=== PATIENT | male | born 1970 | race Two or more races ===

== ENCOUNTER 2021-03-14 13:51 | Inpatient (IN) | payer MEDICAID, OTHER ==
[~2021-03-14] VITALS: Ht 167.6 cm; Wt 90.0 kg
[2021-03-14] MEDS ORDERED: SODIUM CHLORIDE 0.9% 1,000 ML IV ONE (14:00)
[2021-03-14] MEDS ORDERED: PANTOPRAZOLE 40mg/50ML NS AE 50 ML IV ONE (14:00)
[2021-03-14] MEDS ORDERED: OCTREOTIDE ACETATE 100 MCG in SODIUM CHL 0.9% 50 ML IV ONE ×2 (14:00→18:30)
[2021-03-14 14:32] LABS: Albumin 2.2 g/dL (3.4-5.0); Anion Gap 12 (5-15); Blood Urea Nitrogen 14 mg/dL (7-18); Calcium 7.3 mg/dL (8.5-10.1); Carbon Dioxide 16 mmol/L (21-32); Chloride 109 mmol/L (98-107); Eosinophils # (auto) 0.4 10 ^3/uL (0-0.8); Glucose 141 mg/dL (74-106); Lymphocytes # (auto) 1.4 10 ^3/uL (0.4-5.4); Potassium 4.1 mmol/L (3.5-5.1); Sodium 137 mmol/L (136-145)
[2021-03-14 14:33] LABS: INR 1.54 (0.9-1.15); Partial Thromboplastin Time 27.1 sec (23.6-33.0)
[2021-03-14 14:34] LABS: Basophils # (auto) 0.4 10 ^3/uL (0-0.2); Basophils % (auto) 4.6 % (0.0-2.0); Eosinophils % (auto) 4.8 % (0.0-7.0); Hematocrit 22.9 % (41.0-53.0); Lymphocytes % (auto) 16.1 % (10.0-50.0); Mean Corpuscular Hemoglobin 22.1 pg (28.0-32.0); Mean Corpuscular Hgb Conc. 29.8 g/dL (32.0-36.0); Mean Corpuscular Volume 74.2 fL (80.0-100.0); Monocytes % (auto) 10.7 % (0.0-12.0); Neutrophils # (auto) 5.7 10 ^3/uL (1.6-8.6); Neutrophils % (auto) 63.8 % (37.0-80.0); Nucleated Red Blood Cells % 0.2 %; Red Blood Cells 3.09 10^6/uL (4.5-5.90)
[2021-03-14 14:36] LABS: Red Cell Distribution Width 23.8 % (11.8-14.3)
[2021-03-14 14:37] LABS: Alanine Aminotransferase 41 U/L (16-61); Alkaline Phosphatase 122 U/L (45-117); Aspartate Aminotransferase 58 U/L (15-37); BUN/Creatinine Ratio 17.1; Bilirubin, Total 1.5 mg/dL (0.2-1.0); GFR African American 128 mL/min; GFR Non-African American 106 mL/min; Hemoglobin 6.8 g/dL (13.5-17.5); Total Protein 6.9 g/dL (6.4-8.2)
[2021-03-14] MEDS ORDERED: PANTOPRAZOLE 40 MG/10 ML VIAL INJ IV ONE (17:15)
[2021-03-14] MEDS ORDERED: SUCRALFATE 1 GM/10 ML ORAL SUSP PO ONE ×2 (17:15→18:45)
[2021-03-14] MEDS ORDERED: MORPHINE SULFATE INJECTION 2 MG/ML SYRG IV PRN ×3 (17:15→20:00)
[2021-03-14] MEDS ORDERED: NITROGLYCERIN 0.4 MG SL TAB SL PRN ×2 (17:15→20:00)
[2021-03-14] MEDS: SODIUM CHLORIDE 0.9% 1,000 ML IV SCH (17:15)
[2021-03-14] MEDS ORDERED: NOREPINEPHRINE 8 MG/250ML KIT 250 ML IV PRN (18:45)
[2021-03-14] MEDS ORDERED: hydrALAZINE HCL 20 MG/ML VL IV PRN (18:45)
[2021-03-14] MEDS ORDERED: LORazepam 2MG/ML-1ML VIAL IV PRN (18:45)
[2021-03-14] MEDS ORDERED: CEFTRIAXONE SODIUM 2 GM in D5W 5% 50 ML IV ONE (18:45)
[2021-03-14 18:54] LABS: % Iron Saturation 17.3 % (20-55)
[2021-03-14] MEDS ORDERED: PROP20TA73 PO (18:55)
[2021-03-14] MEDS ORDERED: AMOX500C2 PO (18:55)
[2021-03-14] MEDS ORDERED: SPIR100T4 PO (18:55)
[2021-03-14] MEDS ORDERED: PANT40TA2 PO (18:55)
[2021-03-14] MEDS ORDERED: ACETAMINOPHEN 325 MG TAB PO PRN (20:00)
[2021-03-14] MEDS ORDERED: ONDANSETRON HCL 4 MG/2 ML VIAL IV PRN (20:00)
[2021-03-14] MEDS ORDERED: HYDROcodone-ACET 5/325MG TAB PO PRN (20:00)
[2021-03-14] MEDS ORDERED: DOCUSATE SOD 100 MG CAP PO PRN (20:00)
[2021-03-14 20:30] LABS: Cholesterol 81 mg/dL (< 200)
[2021-03-14 20:34] LABS: HDL Cholesterol 31 mg/dL (40-59); LDL Cholesterol 42 mg/dL (< 100); Triglycerides 57 mg/dL (< 150)
[2021-03-14 20:45] VITALS: BP 109/49
[2021-03-14 21:05] VITALS: BP 113/69
[2021-03-14 21:17] LABS: Ferritin 9.3 ng/mL (10-322)
[2021-03-14 21:45] VITALS: BP 116/63
[2021-03-14] MEDS: SUCRALFATE 1 GM/10 ML ORAL SUSP PO SCH (21:47)
[2021-03-14] MEDS: PANTOPRAZOLE 40 MG/10 ML VIAL INJ IV SCH (21:47)
[2021-03-14] MEDS ORDERED: SUCRALFATE 1 GM/10 ML ORAL SUSP PO SCH (22:00)
[2021-03-14] MEDS ORDERED: TEMAZEPAM 15 MG CAP PO PRN (22:00)
[2021-03-14] MEDS: OCTREOTIDE ACETATE 500 MCG in SODIUM CHL 0.9% 99 ML IV SCH (23:18)
[2021-03-14 23:20] VITALS: BP 114/66
[2021-03-14 23:25] VITALS: BP 114/66
[2021-03-14 23:40] VITALS: BP 114/62
[2021-03-15 00:25] VITALS: BP 124/62
[2021-03-15 01:56] LABS: Urine Bacteria FEW /hpf (None Seen); Urine Blood Negative /uL (Negative); Urine Specific Gravity 1.022 (1.001-1.035); Urine WBC 1 /hpf (0 - 3)
[2021-03-15 01:57] VITALS: BP 116/64
[2021-03-15 02:12] LABS: Amphetamine Screen, Urine NEGATIVE (NEGATIVE); Barbiturate Scree,Urine NEGATIVE (NEGATIVE); Benzodiazephine Screen, Urine NEGATIVE (NEGATIVE); Cannabinoid Screen, Urine NEGATIVE (NEGATIVE); Cocaine Screen, Urine NEGATIVE (NEGATIVE); Opiate Scree,Urine NEGATIVE (NEGATIVE); Phencyclidine Screen, Urine NEGATIVE (NEGATIVE)
[2021-03-15 02:45] VITALS: BP 125/66
[2021-03-15 03:05] VITALS: BP 111/69
[2021-03-15 03:45] VITALS: BP 121/65
[2021-03-15 04:30] VITALS: BP 124/66
[2021-03-15] MEDS: OCTREOTIDE ACETATE 500 MCG in SODIUM CHL 0.9% 99 ML IV SCH ×2 (04:30→14:30)
[2021-03-15 07:44] LABS: Hematocrit 22.6 % (41.0-53.0); Mean Corpuscular Hgb Conc. 32.1 g/dL (32.0-36.0)
[2021-03-15] MEDS: SUCRALFATE 1 GM/10 ML ORAL SUSP PO SCH ×4 (08:00→23:37)
[2021-03-15] MEDS ORDERED: LURASIDONE 60 MG PO SCH (08:00)
[2021-03-15 08:02] LABS: Basophils # (auto) 0.1 10 ^3/uL (0-0.2); Eosinophils # (auto) 0.3 10 ^3/uL (0-0.8); Eosinophils % (auto) 4.7 % (0.0-7.0); Hemoglobin 7.3 g/dL (13.5-17.5); Lymphocytes % (auto) 14.3 % (10.0-50.0); Mean Corpuscular Hemoglobin 24.9 pg (28.0-32.0); Mean Corpuscular Volume 77.7 fL (80.0-100.0); Monocytes % (auto) 14.2 % (0.0-12.0); Neutrophils # (auto) 4.5 10 ^3/uL (1.6-8.6); Neutrophils % (auto) 64.8 % (37.0-80.0); Red Blood Cells 2.91 10^6/uL (4.5-5.90)
[2021-03-15 08:03] LABS: Red Cell Distribution Width 23.5 % (11.8-14.3)
[2021-03-15] MEDS: cefTRIAXone 1GM/50ML D5W 50 ML IV SCH (09:00)
[2021-03-15] MEDS: PANTOPRAZOLE 40 MG/10 ML VIAL INJ IV SCH ×2 (10:15→23:38)
[2021-03-15] MEDS: SODIUM CHLORIDE 0.9% 1,000 ML IV SCH (10:15)
[2021-03-16] VITALS (12 sets, daily range): BP systolic 114–133; BP diastolic 58–82
[2021-03-16] MEDS: OCTREOTIDE ACETATE 500 MCG in SODIUM CHL 0.9% 99 ML IV SCH ×3 (01:02→21:19)
[2021-03-16] MEDS ORDERED: VANCOMYCIN PER PHARMACY 0 MG IV SCH (02:15)
[2021-03-16] MEDS ORDERED: VANCOMYCIN 1GM/250ML 250 ML IV ONE (02:45)
[2021-03-16 05:55] LABS: Basophils # (auto) 0.1 10 ^3/uL (0-0.2); Basophils % (auto) 0.9 % (0.0-2.0); Eosinophils # (auto) 0.4 10 ^3/uL (0-0.8); Eosinophils % (auto) 7.7 % (0.0-7.0); Hematocrit 20.9 % (41.0-53.0); Lymphocytes # (auto) 0.7 10 ^3/uL (0.4-5.4); Lymphocytes % (auto) 12.7 % (10.0-50.0); Mean Corpuscular Hemoglobin 25.5 pg (28.0-32.0); Mean Corpuscular Hgb Conc. 32.8 g/dL (32.0-36.0); Mean Corpuscular Volume 77.8 fL (80.0-100.0); Monocytes # (auto) 0.6 10 ^3/uL (0-1.3); Monocytes % (auto) 11.3 % (0.0-12.0); Neutrophils # (auto) 3.8 10 ^3/uL (1.6-8.6); Neutrophils % (auto) 67.4 % (37.0-80.0); Nucleated Red Blood Cells % 0.1 %; Red Blood Cells 2.69 10^6/uL (4.5-5.90); Red Cell Distribution Width 23.9 % (11.8-14.3); White Blood Cell 5.7 10^3/uL (4.4-10.8)
[2021-03-16 06:16] LABS: Calcium 7.7 mg/dL (8.5-10.1); Potassium 3.8 mmol/L (3.5-5.1)
[2021-03-16 06:25] LABS: BUN/Creatinine Ratio 16.7; Bilirubin, Total 2.4 mg/dL (0.2-1.0)
[2021-03-16 06:44] LABS: Hemoglobin 6.9 g/dL (13.5-17.5)
[2021-03-16] MEDS: SUCRALFATE 1 GM/10 ML ORAL SUSP PO SCH ×4 (07:46→21:19)
[2021-03-16] MEDS: cefTRIAXone 1GM/50ML D5W 50 ML IV SCH (09:07)
[2021-03-16] MEDS: PANTOPRAZOLE 40 MG/10 ML VIAL INJ IV SCH ×2 (09:59→21:19)
[2021-03-16 12:28] LABS: INR 1.38 (0.9-1.15)
[2021-03-16] MEDS: VANCOMYCIN 1GM/250ML 250 ML IV SCH ×2 (13:11→23:00)
[2021-03-17 05:00] VITALS: BP 118/70
[2021-03-17] MEDS: SUCRALFATE 1 GM/10 ML ORAL SUSP PO SCH ×4 (05:15→21:04)
[2021-03-17 06:08] LABS: Basophils # (auto) 0.1 10 ^3/uL (0-0.2); Eosinophils # (auto) 0.4 10 ^3/uL (0-0.8); Mean Corpuscular Volume 80.5 fL (80.0-100.0); Monocytes # (auto) 0.6 10 ^3/uL (0-1.3)
[2021-03-17 06:11] LABS: Basophils % (auto) 2.1 % (0.0-2.0); Eosinophils % (auto) 8.2 % (0.0-7.0); Hematocrit 26.5 % (41.0-53.0); Hemoglobin 8.6 g/dL (13.5-17.5); Lymphocytes # (auto) 0.6 10 ^3/uL (0.4-5.4); Lymphocytes % (auto) 13.9 % (10.0-50.0); Mean Corpuscular Hemoglobin 26.3 pg (28.0-32.0); Mean Corpuscular Hgb Conc. 32.6 g/dL (32.0-36.0); Monocytes % (auto) 12.7 % (0.0-12.0); Neutrophils # (auto) 2.9 10 ^3/uL (1.6-8.6); Neutrophils % (auto) 63.1 % (37.0-80.0); Nucleated Red Blood Cells % 0.2 %; Red Blood Cells 3.29 10^6/uL (4.5-5.90); White Blood Cell 4.6 10^3/uL (4.4-10.8)
[2021-03-17 06:17] LABS: INR 1.43 (0.9-1.15)
[2021-03-17 06:18] LABS: Red Cell Distribution Width 23.1 % (11.8-14.3)
[2021-03-17 06:27] LABS: Potassium 3.8 mmol/L (3.5-5.1)
[2021-03-17 06:35] LABS: Albumin 2.1 g/dL (3.4-5.0); Bilirubin, Total 2.7 mg/dL (0.2-1.0); Calcium 7.8 mg/dL (8.5-10.1); Total Protein 6.1 g/dL (6.4-8.2)
[2021-03-17] MEDS: OCTREOTIDE ACETATE 500 MCG in SODIUM CHL 0.9% 99 ML IV SCH ×2 (06:47→17:08)
[2021-03-17 09:00] VITALS: BP 127/74
[2021-03-17 10:06] LABS: Folate (Folic Acid) 17.08 ng/mL (5.38-24)
[2021-03-17] MEDS: PANTOPRAZOLE 40 MG/10 ML VIAL INJ IV SCH ×2 (10:12→21:04)
[2021-03-17] MEDS: VANCOMYCIN 1GM/250ML 250 ML IV SCH ×2 (10:12→18:06)
[2021-03-17] MEDS ORDERED: LIDOCAINE VISCOUS 2% 15ML UD ONE (11:11)
[2021-03-17] MEDS ORDERED: diphenhdrAMINE HCL 50 MG/1 ML VL ONE (11:11)
[2021-03-17] MEDS: cefTRIAXone 1GM/50ML D5W 50 ML IV SCH (11:26)
[2021-03-17 12:49] VITALS: BP 134/73
[2021-03-17] MEDS ORDERED: SIMETHICONE 40 MG/0.6 ML ORAL DROP ONE (13:50)
[2021-03-17] MEDS: MIDAZOLAM HCL 5 MG/ML-1ML VIAL ONE ×2 (13:52→13:56)
[2021-03-17] MEDS: fentaNYL CITRATE 100 MCG/2 ML VL ONE ×2 (13:52→13:56)
[2021-03-17 13:57] LABS: Hepatitis A Ab IgM Negative; Hepatitis B Core IgM Negative
[2021-03-17 13:58] LABS: Hepatitis B Surface Antigen Negative (Negative); Hepatitis C Antibody Negative (Negative)
[2021-03-17 16:49] VITALS: BP 143/78
[2021-03-17 22:00] VITALS: BP 114/69
[2021-03-18] MEDS: OCTREOTIDE ACETATE 500 MCG in SODIUM CHL 0.9% 99 ML IV SCH (02:30)
[2021-03-18] MEDS: VANCOMYCIN 1GM/250ML 250 ML IV SCH (04:32)
[2021-03-18 05:00] VITALS: BP 117/75
[2021-03-18 05:14] LABS: Basophils # (auto) 0.1 10 ^3/uL (0-0.2); Eosinophils # (auto) 0.3 10 ^3/uL (0-0.8); Hemoglobin 9.1 g/dL (13.5-17.5); Lymphocytes # (auto) 0.8 10 ^3/uL (0.4-5.4); White Blood Cell 5.6 10^3/uL (4.4-10.8)
[2021-03-18 05:16] LABS: Basophils % (auto) 1.3 % (0.0-2.0); Eosinophils % (auto) 5.2 % (0.0-7.0); Hematocrit 27.6 % (41.0-53.0); Lymphocytes % (auto) 14.3 % (10.0-50.0); Mean Corpuscular Hemoglobin 26.6 pg (28.0-32.0); Mean Corpuscular Hgb Conc. 32.8 g/dL (32.0-36.0); Monocytes # (auto) 0.6 10 ^3/uL (0-1.3); Neutrophils # (auto) 3.8 10 ^3/uL (1.6-8.6); Neutrophils % (auto) 68.2 % (37.0-80.0); Nucleated Red Blood Cells % 0.2 %; Red Blood Cells 3.41 10^6/uL (4.5-5.90)
[2021-03-18 06:12] LABS: Red Cell Distribution Width 23.4 % (11.8-14.3)
[2021-03-18] MEDS: SUCRALFATE 1 GM/10 ML ORAL SUSP PO SCH ×2 (06:14→11:30)
[2021-03-18 09:00] VITALS: BP 139/80
[2021-03-18] MEDS: cefTRIAXone 1GM/50ML D5W 50 ML IV SCH (09:00)
[2021-03-18] MEDS: PANTOPRAZOLE 40 MG/10 ML VIAL INJ IV SCH (10:00)
[2021-03-18] MEDS ORDERED: FOLIC ACID 1 MG, MULTIPLE VITAMIN 10 ML, MAGNESIUM SULF SDV 50% 8 MEQ, THIAMINE INJ 100... INJ SCH ×5 (12:00)
[2021-03-18] MEDS ORDERED: VANCOMYCIN 1GM/250ML 250 ML IV SCH (12:00)
[2021-03-18 12:35] VITALS: BP 138/80
[2021-03-18 13:00] VITALS: BP 120/66
[2021-03-18 17:00] VITALS: BP 136/83
[2021-03-18] MEDS ORDERED: FOLIC ACID 1 MG, MULTIPLE VITAMIN 10 ML, MAGNESIUM SULF SDV 50% 8 MEQ, THIAMINE INJ 100... INJ ONE ×5 (17:00)
== END 2021-03-18 19:40 | disposition home or self-care (01) | DRG 280 ==
LOC: EDSEX 13:51 → EDBD 13:51 → ER 13:52 → TELE 17:12 → TELE-WESTW 03-16 11:20
PROVIDERS: ADMIT Hospitalist; ATTEND Family Medicine
PROC: 30233N1 Transfusion of Nonautologous Red Blood Cells into Peripheral Vein, Percutaneous Approach (ICD-10-PCS; 2021-03-14)
PROC: 30233K1 Transfusion of Nonautologous Frozen Plasma into Peripheral Vein, Percutaneous Approach (ICD-10-PCS; 2021-03-15)
PROC: 0DJ08ZZ Inspection of Upper Intestinal Tract, Via Natural or Artificial Opening Endoscopic (ICD-10-PCS; principal; 2021-03-17 13:45)
DX: K70.30 Alcoholic cirrhosis of liver without ascites (principal); R57.8 Other shock; K22.11 Ulcer of esophagus with bleeding; E43 Unspecified severe protein-calorie malnutrition; K25.4 Chronic or unspecified gastric ulcer with hemorrhage; K29.71 Gastritis, unspecified, with bleeding; D68.9 Coagulation defect, unspecified; D69.6 Thrombocytopenia, unspecified; I85.10 Secondary esophageal varices without bleeding; D62 Acute posthemorrhagic anemia; K76.6 Portal hypertension; R16.1 Splenomegaly, not elsewhere classified; Z20.822 Contact with and (suspected) exposure to COVID-19; E11.9 Type 2 diabetes mellitus without complications; E66.9 Obesity, unspecified; E78.5 Hyperlipidemia, unspecified; I10 Essential (primary) hypertension; F10.239 Alcohol dependence with withdrawal, unspecified; F17.200 Nicotine dependence, unspecified, uncomplicated; Z71.6 Tobacco abuse counseling; Z68.32 Body mass index [BMI] 32.0-32.9, adult
CPT/HCPCS: 36415; 43235; 71045; 74176; 80053; 80061; 80074; 80202; 80307; 80320; 81001; 82607; 82728; 82746; 83036; 83540; 83550; 83615; 83880; 84484; 85025; 85045; 85610; 85730; 86850; 86900; 86901; 86920; 87040; 87086; 87426; 93005; 93306; 96361; 96365; 96366; 96367; 96368; 96375; 99291; C9113; G0378; J0696; J2250; J7060

== ENCOUNTER 2021-08-09 09:02 | Inpatient (IN) | payer MEDICAID ==
[~2021-08-09] VITALS: Ht 167.6 cm; Wt 93.9 kg
[~2021-08-09 09:02] MED LIST: PANT40TA2 PO; PROP20TA73 PO; SPIR100T4 PO
[2021-08-09 09:41] LABS: Basophils # (auto) 0.1 10 ^3/uL (0-0.2); Eosinophils # (auto) 0.2 10 ^3/uL (0-0.8); Lymphocytes # (auto) 1.1 10 ^3/uL (0.4-5.4); Mean Corpuscular Hemoglobin 24.6 pg (28.0-32.0); Neutrophils # (auto) 9.3 10 ^3/uL (1.6-8.6); Nucleated Red Blood Cells % 0.2 %; White Blood Cell 11.7 10^3/uL (4.4-10.8)
[2021-08-09 09:42] LABS: Eosinophils % (auto) 1.6 % (0.0-7.0); Hematocrit 28.8 % (41.0-53.0); Lymphocytes % (auto) 9.7 % (10.0-50.0); Mean Corpuscular Hgb Conc. 31.3 g/dL (32.0-36.0); Mean Corpuscular Volume 78.6 fL (80.0-100.0); Monocytes # (auto) 0.9 10 ^3/uL (0-1.3); Monocytes % (auto) 7.8 % (0.0-12.0); Neutrophils % (auto) 79.9 % (37.0-80.0); Red Blood Cells 3.66 10^6/uL (4.5-5.90)
[2021-08-09] MEDS ORDERED: ONDANSETRON HCL 4 MG/2 ML VIAL IV ONE (09:45)
[2021-08-09 09:53] LABS: INR 1.38 (0.9-1.15)
[2021-08-09 10:05] LABS: Albumin 2.7 g/dL (3.4-5.0); Calcium 8.3 mg/dL (8.5-10.1); Magnesium 2.3 mg/dL (1.6-2.6); Potassium 3.7 mmol/L (3.5-5.1)
[2021-08-09 10:11] LABS: BUN/Creatinine Ratio 46.4; Bilirubin, Total 2.6 mg/dL (0.2-1.0); Total Protein 7.1 g/dL (6.4-8.2)
[2021-08-09 10:30] LABS: Urine WBC None Seen /hpf (0 - 3)
[2021-08-09] MEDS ORDERED: SODIUM CHLORIDE 0.9% 1,000 ML IV ONE (10:45)
[2021-08-09] MEDS ORDERED: SODIUM CHLORIDE 0.9% 500 ML IVB ONE (10:45)
[2021-08-09 10:52] LABS: Urine Bacteria FEW /hpf (None Seen); Urine Blood Negative /uL (Negative); Urine Mucus FEW (None Seen); Urine Specific Gravity 1.029 (1.001-1.035)
[2021-08-09] MEDS ORDERED: PANTOPRAZOLE 40mg/50ML NS AE 50 ML IV ONE (12:30)
[2021-08-09] MEDS ORDERED: PANTOPRAZOLE 40 MG TAB PO ONE (12:30)
[2021-08-09] MEDS ORDERED: MORPHINE SULFATE INJECTION 2 MG/ML SYRG IV PRN (14:30)
[2021-08-09] MEDS ORDERED: NITROGLYCERIN 0.4 MG SL TAB SL PRN (14:30)
[2021-08-09] MEDS ORDERED: metroNIDAZOLE 500MG/100ML 100 ML IV ONE (15:45)
[2021-08-09] MEDS ORDERED: cefTRIAXone 1GM/50ML D5W 50 ML IV ONE (15:45)
[2021-08-09] MEDS ORDERED: OCTREOTIDE ACETATE 100 MCG in SODIUM CHL 0.9% 50 ML IV ONE (15:45)
[2021-08-09] MEDS ORDERED: HYDROcodone-ACET 5/325MG TAB PO PRN (16:00)
[2021-08-09] MEDS ORDERED: LORazepam 0.5 MG TAB PO PRN (16:00)
[2021-08-09] MEDS ORDERED: FOLIC ACID 1 MG TAB PO ONE (16:00)
[2021-08-09] MEDS ORDERED: hydrALAZINE HCL 20 MG/ML VL IV PRN (16:00)
[2021-08-09] MEDS ORDERED: MULTIPLE VITAMINS W/ MINERALS TAB PO ONE (16:00)
[2021-08-09] MEDS ORDERED: THIAMINE 100mg/ml INJ (200mg/2ml VIAL) IV ONE (16:00)
[2021-08-09] MEDS ORDERED: DOCUSATE SOD 100 MG CAP PO PRN (16:00)
[2021-08-09] MEDS ORDERED: LACTULOSE 20Gm/30ML SOLN PO PRN (16:00)
[2021-08-09] MEDS ORDERED: ONDANSETRON HCL 4 MG/2 ML VIAL IV PRN (16:00)
[2021-08-09] MEDS ORDERED: IPRATROPIUM BROM 0.5 MG/2.5ML INH SOL NEB ONE (16:00)
[2021-08-09] MEDS: metroNIDAZOLE 500MG/100ML 100 ML IV SCH ×2 (16:26→22:17)
[2021-08-09] MEDS: SODIUM CHLORIDE 0.9% 1,000 ML IV SCH (16:42)
[2021-08-09 17:40] LABS: Magnesium 1.9 mg/dL (1.6-2.6); Phosphorus 2.9 mg/dL (2.5-4.90)
[2021-08-09 18:08] LABS: INR 1.54 (0.9-1.15); Partial Thromboplastin Time 29.4 sec (23.6-33.0)
[2021-08-09] MEDS: IPRATROPIUM BROM 0.5 MG/2.5ML INH SOL NEB SCH ×2 (18:53→22:49)
[2021-08-09] MEDS: OCTREOTIDE ACETATE 500 MCG in SODIUM CHL 0.9% 99 ML IV SCH (19:10)
[2021-08-09] MEDS: ATORVASTATIN 20 MG TAB PO SCH (22:17)
[2021-08-09] MEDS: PANTOPRAZOLE 40 MG/10 ML VIAL INJ IV SCH (22:17)
[2021-08-10] VITALS (9 sets, daily range): BP systolic 107–130; BP diastolic 54–81
[2021-08-10] MEDS: IPRATROPIUM BROM 0.5 MG/2.5ML INH SOL NEB SCH ×4 (02:00→19:07)
[2021-08-10 08:42] LABS: Alcohol, Urine < 3.0 mg/dL (0-10); Amphetamine Screen, Urine NEGATIVE (NEGATIVE); Barbiturate Scree,Urine NEGATIVE (NEGATIVE); Benzodiazephine Screen, Urine NEGATIVE (NEGATIVE); Cannabinoid Screen, Urine NEGATIVE (NEGATIVE); Cocaine Screen, Urine NEGATIVE (NEGATIVE); Opiate Scree,Urine NEGATIVE (NEGATIVE); Phencyclidine Screen, Urine NEGATIVE (NEGATIVE)
[2021-08-10] MEDS: OCTREOTIDE ACETATE 500 MCG in SODIUM CHL 0.9% 99 ML IV SCH ×3 (09:10→22:24)
[2021-08-10] MEDS: metroNIDAZOLE 500MG/100ML 100 ML IV SCH ×3 (09:10→23:42)
[2021-08-10] MEDS: SODIUM CHLORIDE 0.9% 1,000 ML IV SCH (09:11)
[2021-08-10] MEDS: cefTRIAXone 1GM/50ML D5W 50 ML IV SCH (09:30)
[2021-08-10] MEDS: MULTIPLE VITAMINS W/ MINERALS TAB PO SCH (09:31)
[2021-08-10] MEDS: FOLIC ACID 1 MG TAB PO SCH (09:31)
[2021-08-10] MEDS: PANTOPRAZOLE 40 MG/10 ML VIAL INJ IV SCH ×2 (09:31→22:32)
[2021-08-10] MEDS: THIAMINE HCL 100 MG TAB PO SCH (09:35)
[2021-08-10 11:25] LABS: CRP High Sensitivity 1.25 mg/dL (< 0.3); Phosphorus 3.3 mg/dL (2.5-4.90); Uric Acid 4.5 mg/dL (3.5-7.2)
[2021-08-10 11:36] LABS: INR 1.49 (0.9-1.15); Partial Thromboplastin Time 29.4 sec (23.6-33.0)
[2021-08-10 11:57] LABS: Basophils # (auto) 0.1 10 ^3/uL (0-0.2); Basophils % (auto) 1.1 % (0.0-2.0); Eosinophils # (auto) 0.4 10 ^3/uL (0-0.8); Eosinophils % (auto) 4.6 % (0.0-7.0); Hematocrit 18.8 % (41.0-53.0); Lymphocytes # (auto) 0.9 10 ^3/uL (0.4-5.4); Lymphocytes % (auto) 10.3 % (10.0-50.0); Mean Corpuscular Hemoglobin 25.7 pg (28.0-32.0); Mean Corpuscular Hgb Conc. 31.8 g/dL (32.0-36.0); Mean Corpuscular Volume 80.8 fL (80.0-100.0); Monocytes # (auto) 0.9 10 ^3/uL (0-1.3); Monocytes % (auto) 10.3 % (0.0-12.0); Neutrophils # (auto) 6.7 10 ^3/uL (1.6-8.6); Neutrophils % (auto) 73.7 % (37.0-80.0); Nucleated Red Blood Cells % 0.1 %; Red Blood Cells 2.33 10^6/uL (4.5-5.90); White Blood Cell 9.1 10^3/uL (4.4-10.8)
[2021-08-10 12:03] LABS: Red Cell Distribution Width 25.7 % (11.8-14.3)
[2021-08-10 13:51] LABS: INR 1.53 (0.9-1.15); Partial Thromboplastin Time 30.2 sec (23.6-33.0)
[2021-08-10 20:15] LABS: Basophils # (auto) 0.1 10 ^3/uL (0-0.2); Eosinophils # (auto) 0.5 10 ^3/uL (0-0.8); Hemoglobin 7.2 g/dL (13.5-17.5); Nucleated Red Blood Cells % 0.2 %
[2021-08-10 20:17] LABS: Basophils % (auto) 0.9 % (0.0-2.0); Eosinophils % (auto) 6.3 % (0.0-7.0); Lymphocytes # (auto) 0.8 10 ^3/uL (0.4-5.4); Lymphocytes % (auto) 10.6 % (10.0-50.0); Mean Corpuscular Hemoglobin 27.2 pg (28.0-32.0); Mean Corpuscular Hgb Conc. 32.8 g/dL (32.0-36.0); Mean Corpuscular Volume 83.1 fL (80.0-100.0); Monocytes % (auto) 12.7 % (0.0-12.0); Neutrophils # (auto) 5.5 10 ^3/uL (1.6-8.6); Neutrophils % (auto) 69.5 % (37.0-80.0); Red Blood Cells 2.64 10^6/uL (4.5-5.90); White Blood Cell 7.9 10^3/uL (4.4-10.8)
[2021-08-10] MEDS ORDERED: IPRATROPIUM BROM 0.5 MG/2.5ML INH SOL NEB PRN (22:00)
[2021-08-10] MEDS: ATORVASTATIN 20 MG TAB PO SCH (22:33)
[2021-08-10] MEDS ORDERED: OCTREOTIDE ACETATE 500 MCG/ML VL ONE (23:51)
[2021-08-11 05:00] VITALS: BP 114/64
[2021-08-11] MEDS: OCTREOTIDE ACETATE 500 MCG in SODIUM CHL 0.9% 99 ML IV SCH (05:15)
[2021-08-11] MEDS: SODIUM CHLORIDE 0.9% 1,000 ML IV SCH (05:21)
[2021-08-11 05:36] LABS: Basophils # (auto) 0.1 10 ^3/uL (0-0.2); Eosinophils # (auto) 0.4 10 ^3/uL (0-0.8); Hematocrit 21.2 % (41.0-53.0); Mean Corpuscular Hgb Conc. 32.9 g/dL (32.0-36.0); Monocytes # (auto) 0.7 10 ^3/uL (0-1.3); White Blood Cell 5.7 10^3/uL (4.4-10.8)
[2021-08-11 05:44] LABS: Basophils % (auto) 1.2 % (0.0-2.0); Eosinophils % (auto) 6.9 % (0.0-7.0); Lymphocytes # (auto) 0.7 10 ^3/uL (0.4-5.4); Mean Corpuscular Hemoglobin 27.5 pg (28.0-32.0); Mean Corpuscular Volume 83.7 fL (80.0-100.0); Monocytes % (auto) 11.8 % (0.0-12.0); Neutrophils # (auto) 3.9 10 ^3/uL (1.6-8.6); Neutrophils % (auto) 68.1 % (37.0-80.0); Nucleated Red Blood Cells % 0.2 %; Red Blood Cells 2.53 10^6/uL (4.5-5.90)
[2021-08-11 05:50] LABS: INR 1.53 (0.9-1.15)
[2021-08-11 06:06] LABS: Potassium 3.4 mmol/L (3.5-5.1)
[2021-08-11 06:15] LABS: BUN/Creatinine Ratio 27.8; Calcium 7.1 mg/dL (8.5-10.1)
[2021-08-11 06:16] LABS: Red Cell Distribution Width 25.1 % (11.8-14.3)
[2021-08-11 06:17] LABS: Bilirubin, Total 2.4 mg/dL (0.2-1.0); Total Protein 5.1 g/dL (6.4-8.2)
[2021-08-11] MEDS: metroNIDAZOLE 500MG/100ML 100 ML IV SCH ×3 (07:55→23:37)
[2021-08-11] MEDS: cefTRIAXone 1GM/50ML D5W 50 ML IV SCH (09:00)
[2021-08-11] MEDS ORDERED: diphenhdrAMINE HCL 50 MG/1 ML VL ONE (09:05)
[2021-08-11] MEDS ORDERED: fentaNYL CITRATE 100 MCG/2 ML VL ONE (09:05)
[2021-08-11] MEDS ORDERED: MIDAZOLAM HCL 5 MG/ML-1ML VIAL ONE (09:05)
[2021-08-11] MEDS ORDERED: LIDOCAINE VISCOUS 2% 15ML UD ONE (09:05)
[2021-08-11] MEDS: THIAMINE HCL 100 MG TAB PO SCH (10:00)
[2021-08-11] MEDS: PANTOPRAZOLE 40 MG/10 ML VIAL INJ IV SCH ×2 (10:00→22:54)
[2021-08-11] MEDS: FOLIC ACID 1 MG TAB PO SCH (10:00)
[2021-08-11] MEDS: MULTIPLE VITAMINS W/ MINERALS TAB PO SCH (10:00)
[2021-08-11 13:00] VITALS: BP 127/70
[2021-08-11 15:45] VITALS: BP 102/50
[2021-08-11 17:00] VITALS: BP 121/68
[2021-08-11 18:54] VITALS: BP 134/79
[2021-08-11 20:12] LABS: Hematocrit 23.8 % (41.0-53.0); Hemoglobin 7.9 g/dL (13.5-17.5)
[2021-08-11] MEDS: ATORVASTATIN 20 MG TAB PO SCH (22:55)
[2021-08-12 06:43] LABS: Basophils # (auto) 0.1 10 ^3/uL (0-0.2); Eosinophils # (auto) 0.3 10 ^3/uL (0-0.8); Hemoglobin 7.9 g/dL (13.5-17.5); Lymphocytes # (auto) 0.4 10 ^3/uL (0.4-5.4); Monocytes # (auto) 0.5 10 ^3/uL (0-1.3); Red Cell Distribution Width 24.1 % (11.8-14.3)
[2021-08-12 06:46] LABS: Basophils % (auto) 1.6 % (0.0-2.0); Eosinophils % (auto) 5.7 % (0.0-7.0); Hematocrit 23.2 % (41.0-53.0); Lymphocytes % (auto) 8.6 % (10.0-50.0); Mean Corpuscular Hemoglobin 28.3 pg (28.0-32.0); Mean Corpuscular Hgb Conc. 34.3 g/dL (32.0-36.0); Mean Corpuscular Volume 82.6 fL (80.0-100.0); Monocytes % (auto) 9.6 % (0.0-12.0); Neutrophils # (auto) 3.9 10 ^3/uL (1.6-8.6); Neutrophils % (auto) 74.5 % (37.0-80.0); Nucleated Red Blood Cells % 0.3 %; Red Blood Cells 2.81 10^6/uL (4.5-5.90); White Blood Cell 5.2 10^3/uL (4.4-10.8)
[2021-08-12 06:56] LABS: INR 1.49 (0.9-1.15); Partial Thromboplastin Time 30.7 sec (23.6-33.0)
[2021-08-12 07:12] LABS: Albumin 2.2 g/dL (3.4-5.0); Calcium 7.4 mg/dL (8.5-10.1); Potassium 3.5 mmol/L (3.5-5.1)
[2021-08-12 07:17] LABS: BUN/Creatinine Ratio 16.1; Bilirubin, Total 4.2 mg/dL (0.2-1.0); Total Protein 5.5 g/dL (6.4-8.2)
[2021-08-12] MEDS: metroNIDAZOLE 500MG/100ML 100 ML IV SCH (07:55)
[2021-08-12 08:00] VITALS: BP 117/58
[2021-08-12] MEDS ORDERED: diphenhdrAMINE HCL 50 MG/1 ML VL ONE (08:25)
[2021-08-12] MEDS ORDERED: MIDAZOLAM HCL 5 MG/ML-1ML VIAL ONE (08:25)
[2021-08-12] MEDS ORDERED: LIDOCAINE VISCOUS 2% 15ML UD ONE (08:25)
[2021-08-12] MEDS ORDERED: fentaNYL CITRATE 100 MCG/2 ML VL ONE (08:26)
[2021-08-12 09:00] VITALS: BP 117/58
[2021-08-12] MEDS: cefTRIAXone 1GM/50ML D5W 50 ML IV SCH (09:00)
[2021-08-12] MEDS: FOLIC ACID 1 MG TAB PO SCH (09:35)
[2021-08-12] MEDS: PANTOPRAZOLE 40 MG/10 ML VIAL INJ IV SCH ×2 (09:35→09:36)
[2021-08-12] MEDS: MULTIPLE VITAMINS W/ MINERALS TAB PO SCH (09:36)
[2021-08-12] MEDS: THIAMINE HCL 100 MG TAB PO SCH (09:36)
[2021-08-12 12:51] VITALS: BP 117/58
[2021-08-12 13:00] VITALS: BP 128/87
== END 2021-08-12 15:41 | disposition home or self-care (01) | DRG 241 ==
LOC: ER 09:02 → TELE 14:29 → TELE-WESTW 08-10 21:53
PROVIDERS: ADMIT Hospitalist; ATTEND Internal Medicine
PROC: 30233N1 Transfusion of Nonautologous Red Blood Cells into Peripheral Vein, Percutaneous Approach (ICD-10-PCS; principal; 2021-08-10)
PROC: 0DJ08ZZ Inspection of Upper Intestinal Tract, Via Natural or Artificial Opening Endoscopic (ICD-10-PCS; 2021-08-12)
DX: K29.21 Alcoholic gastritis with bleeding (principal); I21.A1 Myocardial infarction type 2; E43 Unspecified severe protein-calorie malnutrition; D69.6 Thrombocytopenia, unspecified; J18.9 Pneumonia, unspecified organism; K72.90 Hepatic failure, unspecified without coma; K70.30 Alcoholic cirrhosis of liver without ascites; K57.92 Diverticulitis of intestine, part unspecified, without perforation or abscess without bleeding; I85.10 Secondary esophageal varices without bleeding; K76.6 Portal hypertension; Z20.822 Contact with and (suspected) exposure to COVID-19; D64.9 Anemia, unspecified; N39.0 Urinary tract infection, site not specified; E66.9 Obesity, unspecified; E87.6 Hypokalemia; F10.20 Alcohol dependence, uncomplicated; I50.32 Chronic diastolic (congestive) heart failure; K25.9 Gastric ulcer, unspecified as acute or chronic, without hemorrhage or perforation; K29.80 Duodenitis without bleeding; R53.81 Other malaise; Z68.33 Body mass index [BMI] 33.0-33.9, adult; Z83.3 Family history of diabetes mellitus; Z82.49 Family history of ischemic heart disease and other diseases of the circulatory system
CPT/HCPCS: 36415; 36430; 43235; 71045; 74176; 76705; 80053; 80061; 80307; 81001; 82140; 82728; 83036; 83690; 83735; 83880; 84100; 84443; 84484; 84550; 85014; 85018; 85025; 85379; 85610; 85730; 86141; 86850; 86900; 86901; 86920; 87040; 87086; 87426; 93005; 94640; 96361; 96365; 96375; C9113; G0378; J0696; J2250; J2405; J3490

== ENCOUNTER 2022-02-19 10:35 | Inpatient (IN) | payer MEDICAID, OTHER ==
[~2022-02-19] VITALS: Ht 175.3 cm; Wt 87.3 kg
[2022-02-19] MEDS ORDERED: cefTRIAXone 1GM/50ML D5W 50 ML IV ONE (11:15)
[2022-02-19] MEDS ORDERED: PANTOPRAZOLE 80 MG in SODIUM CHL 0.9% 100 ML IV ONE (11:15)
[2022-02-19] MEDS ORDERED: PANTOPRAZOLE 40mg/50ML NS AE 50 ML IV ONE (11:15)
[2022-02-19] MEDS ORDERED: OCTREOTIDE ACETATE 100 MCG/ML VL IV ONE (12:00)
[2022-02-19 12:20] LABS: Basophils # (auto) 0.1 10 ^3/uL (0-0.2); Eosinophils # (auto) 0.1 10 ^3/uL (0-0.8); Hemoglobin 7.2 g/dL (13.5-17.5); Mean Corpuscular Hemoglobin 21.3 pg (28.0-32.0); Neutrophils # (auto) 5.7 10 ^3/uL (1.6-8.6); Red Blood Cells 3.39 10^6/uL (4.5-5.90)
[2022-02-19 12:22] LABS: Basophils % (auto) 1.7 % (0.0-2.0); Eosinophils % (auto) 0.7 % (0.0-7.0); Hematocrit 24.7 % (41.0-53.0); Lymphocytes % (auto) 12.7 % (10.0-50.0); Mean Corpuscular Hgb Conc. 29.2 g/dL (32.0-36.0); Mean Corpuscular Volume 72.7 fL (80.0-100.0); Monocytes % (auto) 12.4 % (0.0-12.0); Neutrophils % (auto) 72.5 % (37.0-80.0); Nucleated Red Blood Cells % 0.3 %; White Blood Cell 7.9 10^3/uL (4.4-10.8)
[2022-02-19 12:25] LABS: Red Cell Distribution Width 22.9 % (11.8-14.3)
[2022-02-19 12:27] LABS: Urine Bacteria NONE SEEN /hpf (None Seen); Urine Blood 1+ /uL (Negative); Urine Mucus FEW (None Seen); Urine Specific Gravity 1.024 (1.001-1.035); Urine WBC 2 /hpf (0 - 3)
[2022-02-19 12:32] LABS: Albumin 2.4 g/dL (3.4-5.0); Calcium 7.8 mg/dL (8.5-10.1); Potassium 3.6 mmol/L (3.5-5.1)
[2022-02-19 12:34] LABS: INR 1.8 (0.9-1.15); Partial Thromboplastin Time 33.3 sec (24.6-33.4)
[2022-02-19 12:36] LABS: BUN/Creatinine Ratio 35.3; Bilirubin, Total 3.7 mg/dL (0.2-1.0); Total Protein 7.1 g/dL (6.4-8.2)
[2022-02-19] MEDS ORDERED: PHYTONADIONE (VIT K)10 MG/ML 1ML VIAL IV ONE (13:30)
[2022-02-19] MEDS: OCTREOTIDE ACETATE 500 MCG in SODIUM CHL 0.9% 99 ML IV SCH ×3 (13:32→21:35)
[2022-02-19 15:39] LABS: Alcohol, Urine < 3.0 mg/dL (0-10); Amphetamine Screen, Urine NEGATIVE (NEGATIVE); Barbiturate Scree,Urine NEGATIVE (NEGATIVE); Benzodiazephine Screen, Urine NEGATIVE (NEGATIVE); Cannabinoid Screen, Urine NEGATIVE (NEGATIVE); Cocaine Screen, Urine NEGATIVE (NEGATIVE); Opiate Scree,Urine NEGATIVE (NEGATIVE); Phencyclidine Screen, Urine NEGATIVE (NEGATIVE)
[2022-02-19] MEDS ORDERED: NITROGLYCERIN 0.4 MG SL TAB SL PRN (15:45)
[2022-02-19] MEDS ORDERED: MORPHINE SULFATE INJ 2 MG/ml SYRG IV PRN (15:45)
[2022-02-19] MEDS ORDERED: POTASSIUM CHL 20MEQ/100ML 100 ML IV ONE (16:00)
[2022-02-19] MEDS ORDERED: THIAMINE 100mg/ml INJ (200mg/2ml VIAL) IM ONE (16:00)
[2022-02-19 16:38] LABS: Cholesterol 82 mg/dL (< 200)
[2022-02-19 16:41] LABS: HDL Cholesterol 25 mg/dL (40-59); LDL Cholesterol 49 mg/dL (< 100); Triglycerides 81 mg/dL (< 150)
[2022-02-19 17:01] VITALS: BP 124/78
[2022-02-19 17:16] VITALS: BP 125/79
[2022-02-19 18:04] VITALS: BP 132/77
[2022-02-19 18:19] VITALS: BP 117/67
[2022-02-19] MEDS: SODIUM CHLORIDE 0.9% 1,000 ML IV SCH (20:27)
[2022-02-19 20:55] VITALS: BP 127/79
[2022-02-19] MEDS: metroNIDAZOLE 500MG/100ML 100 ML IV SCH (23:27)
[2022-02-19 23:30] VITALS: BP 113/59
[2022-02-20] VITALS (14 sets, daily range): BP systolic 117–135; BP diastolic 50–81
[2022-02-20 01:11] LABS: Hematocrit 23.4 % (41.0-53.0); Hemoglobin 7.2 g/dL (13.5-17.5)
[2022-02-20] MEDS: SODIUM CHLORIDE 0.9% 1,000 ML IV SCH ×3 (04:08→22:00)
[2022-02-20] MEDS: metroNIDAZOLE 500MG/100ML 100 ML IV SCH ×3 (05:57→21:24)
[2022-02-20 06:17] LABS: Basophils # (auto) 0.1 10 ^3/uL (0-0.2); Lymphocytes # (auto) 0.7 10 ^3/uL (0.4-5.4); Mean Corpuscular Hgb Conc. 31.1 g/dL (32.0-36.0); Red Blood Cells 2.91 10^6/uL (4.5-5.90)
[2022-02-20 06:20] LABS: Basophils % (auto) 1.4 % (0.0-2.0); Eosinophils # (auto) 0.2 10 ^3/uL (0-0.8); Eosinophils % (auto) 2.6 % (0.0-7.0); Lymphocytes % (auto) 11.6 % (10.0-50.0); Mean Corpuscular Hemoglobin 23.5 pg (28.0-32.0); Mean Corpuscular Volume 75.6 fL (80.0-100.0); Monocytes # (auto) 0.9 10 ^3/uL (0-1.3); Monocytes % (auto) 15.2 % (0.0-12.0); Neutrophils # (auto) 4.2 10 ^3/uL (1.6-8.6); Neutrophils % (auto) 69.2 % (37.0-80.0); Nucleated Red Blood Cells % 0.2 %; White Blood Cell 6.1 10^3/uL (4.4-10.8)
[2022-02-20 06:35] LABS: Red Cell Distribution Width 24.5 % (11.8-14.3)
[2022-02-20 06:36] LABS: Hemoglobin 6.8 g/dL (13.5-17.5)
[2022-02-20 06:38] LABS: Albumin 2.3 g/dL (3.4-5.0); BUN/Creatinine Ratio 28.6; Calcium 7.7 mg/dL (8.5-10.1); Potassium 3.5 mmol/L (3.5-5.1)
[2022-02-20 06:41] LABS: Bilirubin, Total 3.7 mg/dL (0.2-1.0); Total Protein 6.4 g/dL (6.4-8.2)
[2022-02-20] MEDS: OCTREOTIDE ACETATE 500 MCG in SODIUM CHL 0.9% 99 ML IV SCH ×2 (08:00→18:12)
[2022-02-20] MEDS: CEFTRIAXONE SODIUM 2 GM in D5W 5% 50 ML IV SCH (10:00)
[2022-02-20] MEDS: THIAMINE 100mg/ml INJ (200mg/2ml VIAL) IV SCH (10:24)
[2022-02-20] MEDS: PANTOPRAZOLE 40 MG/10 ML VIAL INJ IV SCH ×2 (10:24→21:23)
[2022-02-20 11:06] LABS: INR 1.44 (0.9-1.15)
[2022-02-20 11:48] LABS: Basophils # (auto) 0.1 10 ^3/uL (0-0.2); Eosinophils # (auto) 0.2 10 ^3/uL (0-0.8); Lymphocytes # (auto) 0.5 10 ^3/uL (0.4-5.4); Monocytes # (auto) 0.8 10 ^3/uL (0-1.3); Neutrophils # (auto) 3.8 10 ^3/uL (1.6-8.6); Nucleated Red Blood Cells % 0.2 %; White Blood Cell 5.3 10^3/uL (4.4-10.8)
[2022-02-20 11:50] LABS: Basophils % (auto) 1.1 % (0.0-2.0); Hematocrit 21.7 % (41.0-53.0); Lymphocytes % (auto) 9.6 % (10.0-50.0); Mean Corpuscular Hemoglobin 22.9 pg (28.0-32.0); Mean Corpuscular Hgb Conc. 30.3 g/dL (32.0-36.0); Mean Corpuscular Volume 75.6 fL (80.0-100.0); Monocytes % (auto) 15.8 % (0.0-12.0); Neutrophils % (auto) 70.5 % (37.0-80.0); Red Blood Cells 2.87 10^6/uL (4.5-5.90)
[2022-02-20 12:13] LABS: Red Cell Distribution Width 25.3 % (11.8-14.3)
[2022-02-20 12:15] LABS: Hemoglobin 6.6 g/dL (13.5-17.5)
[2022-02-20 21:18] LABS: Hemoglobin 8.7 g/dL (13.5-17.5)
[2022-02-20 21:19] LABS: Hematocrit 27.5 % (41.0-53.0)
[2022-02-21] VITALS (10 sets, daily range): BP systolic 112–139; BP diastolic 66–82
[2022-02-21] MEDS: OCTREOTIDE ACETATE 500 MCG in SODIUM CHL 0.9% 99 ML IV SCH ×2 (04:21→16:48)
[2022-02-21 05:06] LABS: Basophils # (auto) 0.1 10 ^3/uL (0-0.2); Eosinophils # (auto) 0.3 10 ^3/uL (0-0.8); Hemoglobin 8.3 g/dL (13.5-17.5); Lymphocytes # (auto) 0.5 10 ^3/uL (0.4-5.4); Neutrophils # (auto) 3.2 10 ^3/uL (1.6-8.6); Red Blood Cells 3.38 10^6/uL (4.5-5.90)
[2022-02-21 05:10] LABS: Eosinophils % (auto) 6.8 % (0.0-7.0); Hematocrit 26.8 % (41.0-53.0); Lymphocytes % (auto) 10.5 % (10.0-50.0); Mean Corpuscular Hemoglobin 24.7 pg (28.0-32.0); Mean Corpuscular Hgb Conc. 31.2 g/dL (32.0-36.0); Mean Corpuscular Volume 79.4 fL (80.0-100.0); Monocytes # (auto) 0.6 10 ^3/uL (0-1.3); Monocytes % (auto) 13.6 % (0.0-12.0); Neutrophils % (auto) 67.1 % (37.0-80.0); Nucleated Red Blood Cells % 0.3 %; White Blood Cell 4.7 10^3/uL (4.4-10.8)
[2022-02-21 05:14] LABS: Red Cell Distribution Width 25.4 % (11.8-14.3)
[2022-02-21 05:16] LABS: BUN/Creatinine Ratio 27.8; Calcium 7.4 mg/dL (8.5-10.1); INR 1.48 (0.9-1.15); Potassium 3.6 mmol/L (3.5-5.1)
[2022-02-21] MEDS: metroNIDAZOLE 500MG/100ML 100 ML IV SCH ×3 (05:57→22:37)
[2022-02-21] MEDS: THIAMINE 100mg/ml INJ (200mg/2ml VIAL) IV SCH (08:35)
[2022-02-21] MEDS: PANTOPRAZOLE 40 MG/10 ML VIAL INJ IV SCH ×2 (08:35→22:37)
[2022-02-21] MEDS: CEFTRIAXONE SODIUM 2 GM in D5W 5% 50 ML IV SCH (08:35)
[2022-02-21] MEDS: SODIUM CHLORIDE 0.9% 1,000 ML IV SCH ×4 (08:36→19:00)
[2022-02-21] MEDS ORDERED: LIDOCAINE VISCOUS 2% 15ML UD ONE (10:50)
[2022-02-21] MEDS ORDERED: SODIUM CHLORIDE LOCK 10 ML ONE (10:50)
[2022-02-21] MEDS ORDERED: fentaNYL CITRATE 100 MCG/2 ML VL ONE (10:50)
[2022-02-21] MEDS ORDERED: MIDAZOLAM HCL 5 MG/ML-1ML VIAL ONE (10:50)
[2022-02-21] MEDS ORDERED: diphenhdrAMINE HCL 50 MG/1 ML VL ONE (10:50)
[2022-02-22] MEDS: OCTREOTIDE ACETATE 500 MCG in SODIUM CHL 0.9% 99 ML IV SCH ×4 (00:30→23:43)
[2022-02-22] MEDS: SODIUM CHLORIDE 0.9% 1,000 ML IV SCH (04:23)
[2022-02-22 05:00] VITALS: BP 140/72
[2022-02-22] MEDS: metroNIDAZOLE 500MG/100ML 100 ML IV SCH ×4 (05:32→23:39)
[2022-02-22 06:06] LABS: Basophils # (auto) 0 10 ^3/uL (0-0.2); Eosinophils # (auto) 0.3 10 ^3/uL (0-0.8); Hemoglobin 8.5 g/dL (13.5-17.5); Lymphocytes # (auto) 0.5 10 ^3/uL (0.4-5.4); Monocytes # (auto) 0.4 10 ^3/uL (0-1.3); Neutrophils # (auto) 2.4 10 ^3/uL (1.6-8.6)
[2022-02-22 06:10] LABS: Basophils % (auto) 0.6 % (0.0-2.0); Eosinophils % (auto) 8.5 % (0.0-7.0); Lymphocytes % (auto) 14.3 % (10.0-50.0); Mean Corpuscular Hemoglobin 24.7 pg (28.0-32.0); Mean Corpuscular Hgb Conc. 31.6 g/dL (32.0-36.0); Mean Corpuscular Volume 78.1 fL (80.0-100.0); Monocytes % (auto) 11.5 % (0.0-12.0); Neutrophils % (auto) 65.1 % (37.0-80.0); Nucleated Red Blood Cells % 0.2 %; Red Blood Cells 3.46 10^6/uL (4.5-5.90); White Blood Cell 3.6 10^3/uL (4.4-10.8)
[2022-02-22 06:13] LABS: Red Cell Distribution Width 25.5 % (11.8-14.3)
[2022-02-22 06:16] LABS: INR 1.56 (0.9-1.15)
[2022-02-22 06:32] LABS: Calcium 7.7 mg/dL (8.5-10.1); Potassium 3.4 mmol/L (3.5-5.1)
[2022-02-22 06:35] LABS: BUN/Creatinine Ratio 15.1
[2022-02-22 08:24] VITALS: BP 129/79
[2022-02-22] MEDS: THIAMINE 100mg/ml INJ (200mg/2ml VIAL) IV SCH (08:32)
[2022-02-22] MEDS: PANTOPRAZOLE 40 MG/10 ML VIAL INJ IV SCH ×2 (08:32→22:05)
[2022-02-22] MEDS: CEFTRIAXONE SODIUM 2 GM in D5W 5% 50 ML IV SCH (08:33)
[2022-02-22] MEDS ORDERED: POTASSIUM CHLORIDE 20 MEQ, LIDOCAINE 1% (LOCAL ANESTH.) 2 ML in SODIUM CHL 0.9% 100 ML IV ONE (10:00)
[2022-02-22] MEDS ORDERED: PHYTONADIONE (VIT K)10 MG/ML 1ML VIAL IV ONE (10:00)
[2022-02-22] MEDS ORDERED: phytonadione 10 MG in SODIUM CHL 0.9% 50 ML IV ONE ×4 (10:30)
[2022-02-22 12:01] VITALS: BP 127/74
[2022-02-22] MEDS ORDERED: CYANOCOBALAMIN (B-12) 1000 MCG/1 ML VIAL IM ONE (15:00)
[2022-02-22 15:02] LABS: Basophils # (auto) 0.1 10 ^3/uL (0-0.2); Eosinophils # (auto) 0.2 10 ^3/uL (0-0.8); Lymphocytes # (auto) 0.4 10 ^3/uL (0.4-5.4); Mean Corpuscular Hgb Conc. 30.7 g/dL (32.0-36.0); Monocytes # (auto) 0.5 10 ^3/uL (0-1.3)
[2022-02-22 15:04] LABS: Basophils % (auto) 1.9 % (0.0-2.0); Eosinophils % (auto) 5.9 % (0.0-7.0); Hematocrit 28.2 % (41.0-53.0); Hemoglobin 8.6 g/dL (13.5-17.5); Lymphocytes % (auto) 11.9 % (10.0-50.0); Mean Corpuscular Hemoglobin 24.2 pg (28.0-32.0); Mean Corpuscular Volume 78.8 fL (80.0-100.0); Monocytes % (auto) 14.5 % (0.0-12.0); Neutrophils # (auto) 2.5 10 ^3/uL (1.6-8.6); Neutrophils % (auto) 65.8 % (37.0-80.0); Nucleated Red Blood Cells % 0.1 %; Red Blood Cells 3.57 10^6/uL (4.5-5.90); Red Cell Distribution Width 25.3 % (11.8-14.3); White Blood Cell 3.8 10^3/uL (4.4-10.8)
[2022-02-22 15:17] LABS: Albumin 2.3 g/dL (3.4-5.0); Calcium 7.6 mg/dL (8.5-10.1); Potassium 3.7 mmol/L (3.5-5.1)
[2022-02-22 15:18] LABS: Bilirubin, Direct 3.5 mg/dL (0-0.2)
[2022-02-22 15:21] LABS: Bilirubin, Total 4.9 mg/dL (0.2-1.0)
[2022-02-22 15:25] LABS: BUN/Creatinine Ratio 14.1; Bilirubin, Total 4.6 mg/dL (0.2-1.0); CRP High Sensitivity 1.45 mg/dL (< 0.3); Total Protein 6.7 g/dL (6.4-8.2)
[2022-02-22 15:34] LABS: INR 1.56 (0.9-1.15); Partial Thromboplastin Time 33.9 sec (24.6-33.4)
[2022-02-22 15:40] LABS: Thyroid Stimulating Hormone 0.4 uIU/mL (0.358-3.74)
[2022-02-22 15:50] LABS: % Iron Saturation 4.4 % (20-55)
[2022-02-22 15:59] LABS: Ferritin 14.2 ng/mL (10-322)
[2022-02-22 17:02] VITALS: BP 131/72
[2022-02-22 22:00] VITALS: BP 130/78
[2022-02-23 05:00] VITALS: BP 146/78
[2022-02-23 05:15] LABS: Eosinophils # (auto) 0.3 10 ^3/uL (0-0.8); Hemoglobin 8.6 g/dL (13.5-17.5); Lymphocytes # (auto) 0.6 10 ^3/uL (0.4-5.4); Monocytes # (auto) 0.4 10 ^3/uL (0-1.3); Neutrophils # (auto) 2.2 10 ^3/uL (1.6-8.6); Nucleated Red Blood Cells % 0.1 %
[2022-02-23 05:18] LABS: Basophils # (auto) 0 10 ^3/uL (0-0.2); Basophils % (auto) 1.4 % (0.0-2.0); Eosinophils % (auto) 7.4 % (0.0-7.0); Hematocrit 27.5 % (41.0-53.0); Lymphocytes % (auto) 16.5 % (10.0-50.0); Mean Corpuscular Hemoglobin 24.6 pg (28.0-32.0); Mean Corpuscular Hgb Conc. 31.3 g/dL (32.0-36.0); Mean Corpuscular Volume 78.6 fL (80.0-100.0); Monocytes % (auto) 11.4 % (0.0-12.0); Neutrophils % (auto) 63.3 % (37.0-80.0); White Blood Cell 3.5 10^3/uL (4.4-10.8)
[2022-02-23 05:20] LABS: Red Cell Distribution Width 25.6 % (11.8-14.3)
[2022-02-23] MEDS: metroNIDAZOLE 500MG/100ML 100 ML IV SCH ×3 (05:25→21:16)
[2022-02-23 05:28] LABS: INR 1.55 (0.9-1.15)
[2022-02-23 05:41] LABS: BUN/Creatinine Ratio 18.8; Calcium 7.6 mg/dL (8.5-10.1); Potassium 3.7 mmol/L (3.5-5.1)
[2022-02-23] MEDS: PANTOPRAZOLE 40 MG/10 ML VIAL INJ IV SCH ×2 (08:35→21:15)
[2022-02-23] MEDS: THIAMINE 100mg/ml INJ (200mg/2ml VIAL) IV SCH (08:35)
[2022-02-23] MEDS: CEFTRIAXONE SODIUM 2 GM in D5W 5% 50 ML IV SCH (08:35)
[2022-02-23 08:55] VITALS: BP 135/84
[2022-02-23] MEDS: SODIUM CHLORIDE 0.9% 1,000 ML IV SCH ×2 (10:00→20:00)
[2022-02-23 12:53] VITALS: BP 164/77
[2022-02-23 13:24] LABS: Hepatitis A Ab IgM Negative
[2022-02-23 13:25] LABS: Hepatitis B Core IgM Negative
[2022-02-23 13:26] LABS: Hepatitis C Antibody Negative (Negative)
[2022-02-23] MEDS: OCTREOTIDE ACETATE 500 MCG in SODIUM CHL 0.9% 99 ML IV SCH (16:00)
[2022-02-23 17:00] VITALS: BP 127/77
[2022-02-23] MEDS: SODIUM FERR GLUC 62.5MG/5ML 125 MG in SODIUM CHL 0.9% 100 ML IV SCH (21:15)
[2022-02-23 22:00] VITALS: BP 129/76
[2022-02-24] MEDS: metroNIDAZOLE 500MG/100ML 100 ML IV SCH ×2 (04:56→23:12)
[2022-02-24] MEDS: OCTREOTIDE ACETATE 500 MCG in SODIUM CHL 0.9% 99 ML IV SCH ×2 (04:56→12:04)
[2022-02-24 05:00] VITALS: BP 137/86
[2022-02-24 06:19] LABS: Basophils # (auto) 0.1 10 ^3/uL (0-0.2); Eosinophils # (auto) 0.3 10 ^3/uL (0-0.8); White Blood Cell 3.8 10^3/uL (4.4-10.8)
[2022-02-24 06:21] LABS: BUN/Creatinine Ratio 12.9; Calcium 7.8 mg/dL (8.5-10.1); Potassium 3.8 mmol/L (3.5-5.1)
[2022-02-24 06:22] LABS: Basophils % (auto) 1.4 % (0.0-2.0); Eosinophils % (auto) 7.5 % (0.0-7.0); Hemoglobin 8.7 g/dL (13.5-17.5); Lymphocytes # (auto) 0.7 10 ^3/uL (0.4-5.4); Lymphocytes % (auto) 17.5 % (10.0-50.0); Mean Corpuscular Hemoglobin 24.2 pg (28.0-32.0); Mean Corpuscular Volume 78.3 fL (80.0-100.0); Monocytes # (auto) 0.5 10 ^3/uL (0-1.3); Neutrophils # (auto) 2.3 10 ^3/uL (1.6-8.6); Neutrophils % (auto) 60.6 % (37.0-80.0); Nucleated Red Blood Cells % 0.1 %; Red Blood Cells 3.58 10^6/uL (4.5-5.90)
[2022-02-24 06:43] LABS: Red Cell Distribution Width 25.9 % (11.8-14.3)
[2022-02-24 09:00] VITALS: BP 120/77
[2022-02-24] MEDS ORDERED: NALOXONE HCL 0.4 MG/ML VIAL ONE (10:35)
[2022-02-24] MEDS ORDERED: FLUMAZENIL 0.1 MG/ML INJ 10ML MDV IV ONE (10:35)
[2022-02-24] MEDS ORDERED: EPINEPHrine HCL 1 MG/10 ML SYRG ONE (10:35)
[2022-02-24] MEDS ORDERED: SODIUM CHLORIDE LOCK 0 ML ONE (10:36)
[2022-02-24] MEDS ORDERED: MIDAZOLAM HCL 5 MG/ML-1ML VIAL ONE (10:36)
[2022-02-24] MEDS ORDERED: fentaNYL CITRATE 100 MCG/2 ML VL ONE (10:36)
[2022-02-24] MEDS ORDERED: LIDOCAINE VISCOUS 2% 15ML UD ONE (10:36)
[2022-02-24] MEDS ORDERED: diphenhdrAMINE HCL 50 MG/1 ML VL ONE (10:36)
[2022-02-24] MEDS: SODIUM CHLORIDE 0.9% 1,000 ML IV SCH ×2 (11:38→16:00)
[2022-02-24] MEDS: PANTOPRAZOLE 40 MG/10 ML VIAL INJ IV SCH ×2 (11:38→22:57)
[2022-02-24] MEDS: THIAMINE 100mg/ml INJ (200mg/2ml VIAL) IV SCH (11:38)
[2022-02-24] MEDS: CEFTRIAXONE SODIUM 2 GM in D5W 5% 50 ML IV SCH (11:39)
[2022-02-24 13:06] LABS: Free T4 (Free Thyroxine) 0.94 ng/dL (0.89-1.76)
[2022-02-24 13:07] LABS: Folate (Folic Acid) 10.37 ng/mL (5.38-24)
[2022-02-24 13:53] VITALS: BP 126/70
[2022-02-24] MEDS ORDERED: ONDANSETRON HCL 4 MG/2 ML VIAL IV PRN (15:30)
[2022-02-24 16:24] VITALS: BP 163/93
[2022-02-24] MEDS: SODIUM FERR GLUC 62.5MG/5ML 125 MG in SODIUM CHL 0.9% 100 ML IV SCH (21:32)
[2022-02-24 22:00] VITALS: BP 146/85
[2022-02-25] MEDS: SODIUM CHLORIDE 0.9% 1,000 ML IV SCH ×2 (02:00→12:00)
[2022-02-25 05:00] VITALS: BP 145/73
[2022-02-25 05:04] LABS: Hemoglobin 8.8 g/dL (13.5-17.5); Mean Corpuscular Hemoglobin 24.9 pg (28.0-32.0)
[2022-02-25] MEDS: metroNIDAZOLE 500MG/100ML 100 ML IV SCH ×2 (05:06→14:10)
[2022-02-25] MEDS: OCTREOTIDE ACETATE 500 MCG in SODIUM CHL 0.9% 99 ML IV SCH ×2 (05:06→08:00)
[2022-02-25 05:08] LABS: Basophils # (auto) 0 10 ^3/uL (0-0.2); Basophils % (auto) 0.9 % (0.0-2.0); Eosinophils # (auto) 0.2 10 ^3/uL (0-0.8); Eosinophils % (auto) 5.9 % (0.0-7.0); Hematocrit 27.4 % (41.0-53.0); Lymphocytes # (auto) 0.7 10 ^3/uL (0.4-5.4); Lymphocytes % (auto) 16.8 % (10.0-50.0); Mean Corpuscular Volume 77.9 fL (80.0-100.0); Monocytes # (auto) 0.4 10 ^3/uL (0-1.3); Monocytes % (auto) 10.9 % (0.0-12.0); Neutrophils # (auto) 2.6 10 ^3/uL (1.6-8.6); Neutrophils % (auto) 65.5 % (37.0-80.0); Nucleated Red Blood Cells % 0.1 %; Red Blood Cells 3.52 10^6/uL (4.5-5.90)
[2022-02-25 05:24] LABS: Red Cell Distribution Width 25.6 % (11.8-14.3)
[2022-02-25 05:27] LABS: Calcium 7.7 mg/dL (8.5-10.1); Potassium 3.8 mmol/L (3.5-5.1)
[2022-02-25 09:00] VITALS: BP 148/77
[2022-02-25] MEDS: CEFTRIAXONE SODIUM 2 GM in D5W 5% 50 ML IV SCH (09:45)
[2022-02-25] MEDS: PANTOPRAZOLE 40 MG/10 ML VIAL INJ IV SCH (09:45)
[2022-02-25] MEDS: THIAMINE 100mg/ml INJ (200mg/2ml VIAL) IV SCH (09:45)
[2022-02-25] MEDS ORDERED: PANT40TA2 PO (09:46)
[2022-02-25] MEDS: SODIUM FERR GLUC 62.5MG/5ML 125 MG in SODIUM CHL 0.9% 100 ML IV SCH (12:13)
[2022-02-25 13:00] VITALS: BP 136/77
[2022-02-25 16:50] VITALS: BP 109/76
== END 2022-02-25 18:15 | disposition home or self-care (01) | DRG 280 ==
LOC: EDBD 10:35 → ER 10:41 → TELE 15:47 → TELE-EAST 22:45
PROVIDERS: ADMIT Registered Nurse; ATTEND Internal Medicine Pulmonary Disease
PROC: 30233N1 Transfusion of Nonautologous Red Blood Cells into Peripheral Vein, Percutaneous Approach (ICD-10-PCS; 2022-02-19)
PROC: 30233R1 Transfusion of Nonautologous Platelets into Peripheral Vein, Percutaneous Approach (ICD-10-PCS; 2022-02-19)
PROC: 06L38CZ Occlusion of Esophageal Vein with Extraluminal Device, Via Natural or Artificial Opening Endoscopic (ICD-10-PCS; 2022-02-24)
PROC: 0DJ08ZZ Inspection of Upper Intestinal Tract, Via Natural or Artificial Opening Endoscopic (ICD-10-PCS; principal; 2022-02-24 14:44)
DX: K70.30 Alcoholic cirrhosis of liver without ascites (principal); I85.11 Secondary esophageal varices with bleeding; E43 Unspecified severe protein-calorie malnutrition; K29.71 Gastritis, unspecified, with bleeding; K29.81 Duodenitis with bleeding; D68.9 Coagulation defect, unspecified; D69.6 Thrombocytopenia, unspecified; D62 Acute posthemorrhagic anemia; E11.9 Type 2 diabetes mellitus without complications; Z20.822 Contact with and (suspected) exposure to COVID-19; Z79.899 Other long term (current) drug therapy; Z68.31 Body mass index [BMI] 31.0-31.9, adult
CPT/HCPCS: 36415; 36430; 71045; 76700; 80048; 80053; 80061; 80074; 80307; 80320; 81001; 82105; 82247; 82248; 82607; 82668; 82728; 82746; 83010; 83036; 83540; 83550; 83615; 84439; 84443; 84484; 85014; 85018; 85025; 85045; 85362; 85610; 85652; 85730; 86141; 86431; 86703; 86850; 86880; 86900; 86901; 86920; 93005; 96361; 96365; 96367; 96372; 96375; 99291; C9113; G0378; J0696; J2001; J2250; J3430; J3480; J3490; J7060

== ENCOUNTER 2022-06-10 08:46 | Inpatient (IN) | payer OTHER ==
[~2022-06-10] VITALS: Ht 160 cm; Wt 93.5 kg
[~2022-06-10 08:46] MED LIST changes: -PROP20TA73 PO; -SPIR100T4 PO
[2022-06-10 09:32] LABS: Hemoglobin 10.8 g/dL (13.5-17.5)
[2022-06-10 09:34] LABS: White Blood Cell 8.7 10^3/uL (4.4-10.8)
[2022-06-10 09:43] LABS: Urine Blood 3+ /uL (Negative); Urine Specific Gravity 1.018 (1.001-1.035)
[2022-06-10 10:07] LABS: Calcium 8.7 mg/dL (8.5-10.1); Potassium 3.7 mmol/L (3.5-5.1)
[2022-06-10 10:11] LABS: Bilirubin, Total 7.2 mg/dL (0.2-1.0); Total Protein 8.6 g/dL (6.4-8.2)
[2022-06-10 10:18] LABS: Mean Corpuscular Hemoglobin 22.6 pg (28.0-32.0); Mean Corpuscular Hgb Conc. 30.9 g/dL (32.0-36.0); Mean Corpuscular Volume 73.1 fL (80.0-100.0); Red Blood Cells 4.79 10^6/uL (4.5-5.90); Red Cell Distribution Width 24.2 % (11.8-14.3)
[2022-06-10 10:21] LABS: Band Neutrophils % (manual) 0; Basophils % (manual) 0 (0.0-2.0); Blast Cells 0; Metamyelocytes % 0; Myelocytes % 0; Promyelocytes % 0; Reactive Lymphocytes 0
[2022-06-10 10:47] LABS: Eosinophils % (manual) 4 (0-7); Lymphocytes % (manual) 8 (10.0-50.0); Monocytes % (manual) 6 (0-12)
[2022-06-10 11:28] LABS: INR 1.57 (0.9-1.15); Partial Thromboplastin Time 33.5 sec (24.6-33.4)
[2022-06-10 11:50] LABS: Magnesium 1.9 mg/dL (1.6-2.6)
[2022-06-10] MEDS: SODIUM CHLORIDE 0.9% 1,000 ML IV SCH (15:00)
[2022-06-10] MEDS ORDERED: THIAMINE 100mg/ml INJ (200mg/2ml VIAL) IV ONE (15:15)
[2022-06-10] MEDS ORDERED: B-COMPLEX W/ C & FOLIC ACID(NEPHROVITE TAB) PO ONE (15:15)
[2022-06-10] MEDS ORDERED: MULTIPLE VITAMIN TAB PO ONE (15:45)
[2022-06-10 15:48] LABS: Cholesterol 131 mg/dL (< 200); Triglycerides 108 mg/dL (< 150)
[2022-06-10 15:51] LABS: HDL Cholesterol 44 mg/dL (40-59); LDL Cholesterol 89 mg/dL (< 100)
[2022-06-10] MEDS: FOLIC ACID 1 MG TAB PO SCH (16:23)
[2022-06-10] MEDS: THIAMINE HCL 100 MG TAB PO SCH (16:23)
[2022-06-10 16:30] LABS: % Iron Saturation 32.3 % (20-55)
[2022-06-10] MEDS: ASCORBIC ACID 500 MG TAB PO SCH (22:24)
[2022-06-11] VITALS (8 sets, daily range): BP systolic 99–134; BP diastolic 53–77
[2022-06-11] MEDS ORDERED: CHOL200031 PO (05:14)
[2022-06-11] MEDS ORDERED: FERR325T20 PO (05:14)
[2022-06-11 05:43] LABS: Potassium 3.8 mmol/L (3.5-5.1)
[2022-06-11 05:50] LABS: Albumin 2.4 g/dL (3.4-5.0); BUN/Creatinine Ratio 35.6; Bilirubin, Total 4.7 mg/dL (0.2-1.0); Calcium 8.4 mg/dL (8.5-10.1); Total Protein 7.2 g/dL (6.4-8.2)
[2022-06-11 05:56] LABS: Basophils # (auto) 0.1 10 ^3/uL (0-0.2); Basophils % (auto) 1.1 % (0.0-2.0); Eosinophils # (auto) 0.4 10 ^3/uL (0-0.8); Hemoglobin 8.9 g/dL (13.5-17.5); Lymphocytes # (auto) 0.7 10 ^3/uL (0.4-5.4)
[2022-06-11 06:03] LABS: Hematocrit 29.4 % (41.0-53.0); Lymphocytes % (auto) 7.3 % (10.0-50.0); Mean Corpuscular Hemoglobin 22.5 pg (28.0-32.0); Mean Corpuscular Hgb Conc. 30.3 g/dL (32.0-36.0); Mean Corpuscular Volume 74.3 fL (80.0-100.0); Monocytes % (auto) 11.2 % (0.0-12.0); Neutrophils # (auto) 6.9 10 ^3/uL (1.6-8.6); Neutrophils % (auto) 76.4 % (37.0-80.0); Nucleated Red Blood Cells % 0.1 %; Red Blood Cells 3.95 10^6/uL (4.5-5.90)
[2022-06-11 07:00] LABS: Red Cell Distribution Width 23.5 % (11.8-14.3)
[2022-06-11] MEDS: ZINC SULFATE 220mg CAP or TAB PO SCH (09:56)
[2022-06-11] MEDS: FOLIC ACID 1 MG TAB PO SCH (09:56)
[2022-06-11] MEDS: ASCORBIC ACID 500 MG TAB PO SCH ×2 (09:57→22:17)
[2022-06-11] MEDS: THIAMINE HCL 100 MG TAB PO SCH (09:57)
[2022-06-11] MEDS: MULTIPLE VITAMIN TAB PO SCH (09:57)
[2022-06-11] MEDS: SODIUM CHLORIDE 0.9% 1,000 ML IV SCH (09:57)
[2022-06-11] MEDS ORDERED: THIAMINE 100mg/ml INJ (200mg/2ml VIAL) IV SCH (10:00)
[2022-06-11] MEDS ORDERED: ENOXAPARIN SOD 40 MG/0.4 ML SYRINGE SC SCH (10:00)
[2022-06-11] MEDS ORDERED: B-COMPLEX W/ C & FOLIC ACID(NEPHROVITE TAB) PO SCH (10:00)
[2022-06-11] MEDS ORDERED: ONDANSETRON HCL 4 MG/2 ML VIAL IV PRN (13:30)
[2022-06-11 14:38] LABS: Hepatitis A Ab IgM Negative
[2022-06-11 14:40] LABS: Hepatitis B Core IgM Negative; Hepatitis C Antibody Negative (Negative)
[2022-06-11] MEDS ORDERED: cefTRIAXone 1GM/50ML D5W 50 ML IV ONE (15:45)
[2022-06-11] MEDS ORDERED: metroNIDAZOLE 500MG/100ML 100 ML IV ONE (15:45)
[2022-06-11] MEDS: PANTOPRAZOLE 40 MG TAB PO SCH (22:17)
[2022-06-11] MEDS: metroNIDAZOLE 500MG/100ML 100 ML IV SCH (22:17)
[2022-06-12] VITALS (14 sets, daily range): BP systolic 97–127; BP diastolic 33–71
[2022-06-12] MEDS: metroNIDAZOLE 500MG/100ML 100 ML IV SCH ×3 (05:37→21:49)
[2022-06-12 07:44] LABS: INR 2.2 (0.9-1.15); Partial Thromboplastin Time 35.9 sec (24.6-33.4)
[2022-06-12 07:45] LABS: Albumin 1.9 g/dL (3.4-5.0); Calcium 8.2 mg/dL (8.5-10.1); Potassium 4.8 mmol/L (3.5-5.1)
[2022-06-12 07:49] LABS: BUN/Creatinine Ratio 54.2; Bilirubin, Total 4.2 mg/dL (0.2-1.0); Total Protein 4.9 g/dL (6.4-8.2)
[2022-06-12 09:54] LABS: Eosinophils # (auto) 0.1 10 ^3/uL (0-0.8); Lymphocytes # (auto) 1.6 10 ^3/uL (0.4-5.4); Monocytes # (auto) 2.6 10 ^3/uL (0-1.3); Neutrophils % (auto) 82.3 % (37.0-80.0); Red Blood Cells 2.02 10^6/uL (4.5-5.90)
[2022-06-12 09:56] LABS: Basophils # (auto) 0.1 10 ^3/uL (0-0.2); Basophils % (auto) 0.3 % (0.0-2.0); Eosinophils % (auto) 0.6 % (0.0-7.0); Hematocrit 16.2 % (41.0-53.0); Lymphocytes % (auto) 6.5 % (10.0-50.0); Mean Corpuscular Hemoglobin 23.9 pg (28.0-32.0); Mean Corpuscular Hgb Conc. 29.7 g/dL (32.0-36.0); Mean Corpuscular Volume 80.4 fL (80.0-100.0); Monocytes % (auto) 10.3 % (0.0-12.0); Neutrophils # (auto) 20.9 10 ^3/uL (1.6-8.6); Nucleated Red Blood Cells % 0.2 %; White Blood Cell 25.4 10^3/uL (4.4-10.8)
[2022-06-12 10:03] LABS: Red Cell Distribution Width 24.4 % (11.8-14.3)
[2022-06-12 10:13] LABS: Hemoglobin 4.8 g/dL (13.5-17.5)
[2022-06-12] MEDS ORDERED: MORPHINE SULFATE INJ 2 MG/ml SYRG IV PRN (10:45)
[2022-06-12] MEDS ORDERED: NITROGLYCERIN 0.4 MG SL TAB SL PRN (10:45)
[2022-06-12] MEDS: cefTRIAXone 1GM/50ML D5W 50 ML IV SCH (11:03)
[2022-06-12] MEDS: ASCORBIC ACID 500 MG TAB PO SCH ×2 (11:04→21:48)
[2022-06-12] MEDS: ZINC SULFATE 220mg CAP or TAB PO SCH (11:04)
[2022-06-12] MEDS: FOLIC ACID 1 MG TAB PO SCH (11:04)
[2022-06-12] MEDS: PANTOPRAZOLE 40 MG TAB PO SCH ×2 (11:04→21:49)
[2022-06-12] MEDS: THIAMINE HCL 100 MG TAB PO SCH (11:04)
[2022-06-12] MEDS: MULTIPLE VITAMIN TAB PO SCH (11:08)
[2022-06-12 12:45] LABS: Folate (Folic Acid) 11.59 ng/mL (5.38-24)
[2022-06-12 23:20] LABS: Hematocrit 17.4 % (41.0-53.0)
[2022-06-12 23:24] LABS: Hemoglobin 5.3 g/dL (13.5-17.5)
[2022-06-13] VITALS (13 sets, daily range): BP systolic 103–132; BP diastolic 47–69
[2022-06-13] MEDS: metroNIDAZOLE 500MG/100ML 100 ML IV SCH ×3 (05:25→23:08)
[2022-06-13 06:12] LABS: INR 2.12 (0.9-1.15)
[2022-06-13 06:18] LABS: BUN/Creatinine Ratio 60.6; Calcium 8.1 mg/dL (8.5-10.1); Potassium 3.9 mmol/L (3.5-5.1)
[2022-06-13 06:28] LABS: Basophils # (auto) 0.1 10 ^3/uL (0-0.2)
[2022-06-13 06:31] LABS: Basophils % (auto) 0.5 % (0.0-2.0); Eosinophils # (auto) 0.5 10 ^3/uL (0-0.8); Eosinophils % (auto) 3.6 % (0.0-7.0); Hematocrit 18.4 % (41.0-53.0); Lymphocytes # (auto) 0.9 10 ^3/uL (0.4-5.4); Lymphocytes % (auto) 5.7 % (10.0-50.0); Mean Corpuscular Hemoglobin 27.2 pg (28.0-32.0); Mean Corpuscular Hgb Conc. 34.1 g/dL (32.0-36.0); Mean Corpuscular Volume 79.8 fL (80.0-100.0); Monocytes # (auto) 1.8 10 ^3/uL (0-1.3); Monocytes % (auto) 12.3 % (0.0-12.0); Neutrophils # (auto) 11.7 10 ^3/uL (1.6-8.6); Neutrophils % (auto) 77.9 % (37.0-80.0); Nucleated Red Blood Cells % 0.6 %; Red Blood Cells 2.31 10^6/uL (4.5-5.90)
[2022-06-13 06:32] LABS: Bilirubin, Total 5.6 mg/dL (0.2-1.0); Total Protein 5.1 g/dL (6.4-8.2)
[2022-06-13 07:44] LABS: Red Cell Distribution Width 23.5 % (11.8-14.3)
[2022-06-13 07:47] LABS: Hemoglobin 6.3 g/dL (13.5-17.5)
[2022-06-13] MEDS: cefTRIAXone 1GM/50ML D5W 50 ML IV SCH (09:14)
[2022-06-13] MEDS: MULTIPLE VITAMIN TAB PO SCH (09:15)
[2022-06-13] MEDS: ZINC SULFATE 220mg CAP or TAB PO SCH (09:15)
[2022-06-13] MEDS: THIAMINE HCL 100 MG TAB PO SCH (09:15)
[2022-06-13] MEDS: FOLIC ACID 1 MG TAB PO SCH (09:15)
[2022-06-13] MEDS: ASCORBIC ACID 500 MG TAB PO SCH ×2 (09:16→21:25)
[2022-06-13] MEDS: PANTOPRAZOLE 40 MG TAB PO SCH ×2 (09:16→21:25)
[2022-06-14] VITALS (11 sets, daily range): BP systolic 114–135; BP diastolic 61–91
[2022-06-14 04:49] LABS: Basophils # (auto) 0.1 10 ^3/uL (0-0.2); Eosinophils # (auto) 0.6 10 ^3/uL (0-0.8); Hematocrit 20.7 % (41.0-53.0); Lymphocytes # (auto) 0.6 10 ^3/uL (0.4-5.4); Red Blood Cells 2.53 10^6/uL (4.5-5.90); White Blood Cell 7.7 10^3/uL (4.4-10.8)
[2022-06-14 04:51] LABS: Basophils % (auto) 1.2 % (0.0-2.0); Lymphocytes % (auto) 7.9 % (10.0-50.0); Mean Corpuscular Hemoglobin 27.9 pg (28.0-32.0); Mean Corpuscular Hgb Conc. 34.1 g/dL (32.0-36.0); Mean Corpuscular Volume 81.8 fL (80.0-100.0); Monocytes # (auto) 1.2 10 ^3/uL (0-1.3); Monocytes % (auto) 15.8 % (0.0-12.0); Neutrophils # (auto) 5.2 10 ^3/uL (1.6-8.6); Neutrophils % (auto) 67.1 % (37.0-80.0); Nucleated Red Blood Cells % 1.6 %
[2022-06-14 05:03] LABS: Red Cell Distribution Width 21.4 % (11.8-14.3)
[2022-06-14] MEDS: metroNIDAZOLE 500MG/100ML 100 ML IV SCH ×3 (06:05→22:57)
[2022-06-14] MEDS: PANTOPRAZOLE 40 MG TAB PO SCH ×2 (09:39→22:58)
[2022-06-14] MEDS: FOLIC ACID 1 MG TAB PO SCH (09:39)
[2022-06-14] MEDS: MULTIPLE VITAMIN TAB PO SCH (09:39)
[2022-06-14] MEDS: THIAMINE HCL 100 MG TAB PO SCH (09:39)
[2022-06-14] MEDS: ZINC SULFATE 220mg CAP or TAB PO SCH (09:39)
[2022-06-14] MEDS: cefTRIAXone 1GM/50ML D5W 50 ML IV SCH (09:39)
[2022-06-14] MEDS: ASCORBIC ACID 500 MG TAB PO SCH ×2 (09:40→22:58)
[2022-06-14] MEDS: OCTREOTIDE ACETATE 500 MCG in SODIUM CHL 0.9% 99 ML IV SCH ×2 (18:09→23:45)
[2022-06-15] VITALS (8 sets, daily range): BP systolic 106–126; BP diastolic 62–75
[2022-06-15] MEDS: metroNIDAZOLE 500MG/100ML 100 ML IV SCH ×3 (05:18→21:33)
[2022-06-15 08:30] LABS: Basophils # (auto) 0.1 10 ^3/uL (0-0.2); Eosinophils # (auto) 0.5 10 ^3/uL (0-0.8); Hemoglobin 8.1 g/dL (13.5-17.5); Lymphocytes # (auto) 0.6 10 ^3/uL (0.4-5.4); Mean Corpuscular Hemoglobin 27.2 pg (28.0-32.0); Monocytes # (auto) 1.1 10 ^3/uL (0-1.3)
[2022-06-15 08:32] LABS: Basophils % (auto) 1.3 % (0.0-2.0); Eosinophils % (auto) 7.4 % (0.0-7.0); Hematocrit 24.4 % (41.0-53.0); Lymphocytes % (auto) 8.6 % (10.0-50.0); Mean Corpuscular Volume 82.4 fL (80.0-100.0); Monocytes % (auto) 15.7 % (0.0-12.0); Neutrophils # (auto) 4.7 10 ^3/uL (1.6-8.6); Nucleated Red Blood Cells % 1.3 %; Red Blood Cells 2.96 10^6/uL (4.5-5.90); White Blood Cell 7.1 10^3/uL (4.4-10.8)
[2022-06-15 08:34] LABS: INR 1.62 (0.9-1.15); Partial Thromboplastin Time 32.8 sec (24.6-33.4)
[2022-06-15 08:39] LABS: Albumin 2.2 g/dL (3.4-5.0); Calcium 7.6 mg/dL (8.5-10.1)
[2022-06-15 08:41] LABS: BUN/Creatinine Ratio 22.4
[2022-06-15 08:44] LABS: Bilirubin, Total 7.2 mg/dL (0.2-1.0); Total Protein 5.5 g/dL (6.4-8.2)
[2022-06-15 09:15] LABS: Red Cell Distribution Width 21.6 % (11.8-14.3)
[2022-06-15] MEDS: cefTRIAXone 1GM/50ML D5W 50 ML IV SCH (09:56)
[2022-06-15] MEDS: ASCORBIC ACID 500 MG TAB PO SCH ×2 (10:00→21:34)
[2022-06-15] MEDS: THIAMINE HCL 100 MG TAB PO SCH (10:00)
[2022-06-15] MEDS: FOLIC ACID 1 MG TAB PO SCH (10:00)
[2022-06-15] MEDS: ZINC SULFATE 220mg CAP or TAB PO SCH (10:00)
[2022-06-15] MEDS: PANTOPRAZOLE 40 MG TAB PO SCH ×2 (10:00→21:33)
[2022-06-15] MEDS: MULTIPLE VITAMIN TAB PO SCH (10:00)
[2022-06-15] MEDS: OCTREOTIDE ACETATE 500 MCG in SODIUM CHL 0.9% 99 ML IV SCH ×2 (10:05→19:45)
[2022-06-16 05:00] VITALS: BP 117/70
[2022-06-16] MEDS: OCTREOTIDE ACETATE 500 MCG in SODIUM CHL 0.9% 99 ML IV SCH ×2 (05:04→15:45)
[2022-06-16] MEDS: metroNIDAZOLE 500MG/100ML 100 ML IV SCH ×2 (05:04→14:42)
[2022-06-16 07:56] LABS: Basophils # (auto) 0.1 10 ^3/uL (0-0.2); Eosinophils # (auto) 0.3 10 ^3/uL (0-0.8); Hemoglobin 7.6 g/dL (13.5-17.5); Lymphocytes # (auto) 0.4 10 ^3/uL (0.4-5.4); Monocytes # (auto) 0.8 10 ^3/uL (0-1.3); Neutrophils # (auto) 4.1 10 ^3/uL (1.6-8.6); White Blood Cell 5.7 10^3/uL (4.4-10.8)
[2022-06-16 07:59] LABS: Hematocrit 23.6 % (41.0-53.0); Lymphocytes % (auto) 7.3 % (10.0-50.0); Mean Corpuscular Hemoglobin 27.1 pg (28.0-32.0); Mean Corpuscular Hgb Conc. 32.4 g/dL (32.0-36.0); Mean Corpuscular Volume 83.8 fL (80.0-100.0); Neutrophils % (auto) 71.7 % (37.0-80.0); Red Blood Cells 2.82 10^6/uL (4.5-5.90)
[2022-06-16 08:00] LABS: Red Cell Distribution Width 21.6 % (11.8-14.3)
[2022-06-16 09:00] VITALS: BP 115/67
[2022-06-16] MEDS: cefTRIAXone 1GM/50ML D5W 50 ML IV SCH (09:00)
[2022-06-16] MEDS: PANTOPRAZOLE 40 MG TAB PO SCH (10:00)
[2022-06-16] MEDS: MULTIPLE VITAMIN TAB PO SCH (10:00)
[2022-06-16] MEDS: THIAMINE HCL 100 MG TAB PO SCH (10:00)
[2022-06-16] MEDS: FOLIC ACID 1 MG TAB PO SCH (10:00)
[2022-06-16] MEDS: ASCORBIC ACID 500 MG TAB PO SCH (10:00)
[2022-06-16] MEDS: ZINC SULFATE 220mg CAP or TAB PO SCH (10:00)
[2022-06-16] MEDS ORDERED: MIDAZOLAM HCL 2MG/2ML 2ml VIAL (1mg/ml) ONE (10:50)
[2022-06-16] MEDS ORDERED: SODIUM CHLORIDE LOCK 10 ML ONE (10:50)
[2022-06-16] MEDS ORDERED: LIDOCAINE VISCOUS 2% 15ML UD ONE (10:50)
[2022-06-16] MEDS: fentaNYL CITRATE 100 MCG/2 ML VL ONE ×2 (11:12→11:16)
[2022-06-16] MEDS: MIDAZOLAM HCL 2MG/2ML 2ml VIAL (1mg/ml) ONE ×2 (11:12→11:16)
[2022-06-16] MEDS: diphenhdrAMINE HCL 50 MG/1 ML VL ONE ×2 (11:12→11:14)
[2022-06-16] MEDS: SUCRALFATE 1 GM/10 ML ORAL SUSP PO SCH ×2 (13:11→17:00)
[2022-06-16] MEDS ORDERED: PANT40T PO (15:24)
[2022-06-16] MEDS ORDERED: SUCR1SUS10 PO (15:24)
[2022-06-16] MEDS ORDERED: ERGO1CAP23 PO (15:25)
[2022-06-16 17:00] VITALS: BP 122/76
[2022-06-16] MEDS ORDERED: FERROUS SULFATE 325mg EC TAB PO SCH (18:00)
== END 2022-06-16 18:40 | disposition home or self-care (01) | DRG 241 ==
LOC: ER 08:46 → OVERFLOW 15:01 → WEST WING 06-11 02:10 → TELE-WESTW 06-12 09:36
PROVIDERS: ADMIT Nurse Practitioner Family; ATTEND Internal Medicine
PROC: 30233N1 Transfusion of Nonautologous Red Blood Cells into Peripheral Vein, Percutaneous Approach (ICD-10-PCS; 2022-06-12)
PROC: 30233K1 Transfusion of Nonautologous Frozen Plasma into Peripheral Vein, Percutaneous Approach (ICD-10-PCS; 2022-06-14)
PROC: 0DB68ZX Excision of Stomach, Via Natural or Artificial Opening Endoscopic, Diagnostic (ICD-10-PCS; 2022-06-16)
PROC: 0DB98ZX Excision of Duodenum, Via Natural or Artificial Opening Endoscopic, Diagnostic (ICD-10-PCS; principal; 2022-06-16 11:07)
DX: K29.91 Gastroduodenitis, unspecified, with bleeding (principal); I21.A1 Myocardial infarction type 2; K85.90 Acute pancreatitis without necrosis or infection, unspecified; E43 Unspecified severe protein-calorie malnutrition; D68.9 Coagulation defect, unspecified; K70.30 Alcoholic cirrhosis of liver without ascites; D50.0 Iron deficiency anemia secondary to blood loss (chronic); E11.9 Type 2 diabetes mellitus without complications; E55.9 Vitamin D deficiency, unspecified; K25.4 Chronic or unspecified gastric ulcer with hemorrhage; I85.10 Secondary esophageal varices without bleeding; Z20.822 Contact with and (suspected) exposure to COVID-19; E66.9 Obesity, unspecified; R31.21 Asymptomatic microscopic hematuria; F10.10 Alcohol abuse, uncomplicated; Z82.49 Family history of ischemic heart disease and other diseases of the circulatory system; Z83.3 Family history of diabetes mellitus; Z68.35 Body mass index [BMI] 35.0-35.9, adult
CPT/HCPCS: 36415; 43239; 71046; 74176; 76705; 80053; 80061; 80074; 81001; 82105; 82140; 82248; 82270; 82306; 82607; 82746; 83036; 83540; 83550; 83690; 83735; 83880; 84443; 84484; 85007; 85014; 85018; 85025; 85027; 85610; 85730; 86850; 86900; 86901; 86920; 87426; 93005; 93306; 96360; G0378; J0696; J2250; J2405; J3490

== ENCOUNTER 2022-07-24 10:53 | Emergency (ER) | payer OTHER ==
[~2022-07-24] VITALS: Ht 167.6 cm; Wt 88.5 kg
[~2022-07-24 10:53] MED LIST changes: +CHOL200031 PO; +ERGO1CAP23 PO; +FERR325T20 PO; +PANT40T PO; -PANT40TA2 PO; +SUCR1SUS10 PO
[2022-07-24 13:29] LABS: Urine Bacteria NONE SEEN /hpf (None Seen); Urine Blood 3+ /uL (Negative); Urine Mucus FEW (None Seen); Urine Specific Gravity 1.021 (1.001-1.035); Urine WBC 5 /hpf (0 - 3)
[2022-07-24] MEDS ORDERED: KETOROLAC TROMETH 30 MG/ML 1ML VIAL IV ONE (14:15)
[2022-07-24] MEDS ORDERED: SODIUM CHLORIDE 0.9% 1,000 ML IV ONE (14:15)
[2022-07-24 14:43] LABS: Basophils # (auto) 0.1 10 ^3/uL (0-0.2); Basophils % (auto) 1.4 % (0.0-2.0); Eosinophils # (auto) 0.2 10 ^3/uL (0-0.8); Lymphocytes # (auto) 0.8 10 ^3/uL (0.4-5.4); Mean Corpuscular Hemoglobin 24.3 pg (28.0-32.0); Monocytes # (auto) 0.7 10 ^3/uL (0-1.3); Nucleated Red Blood Cells % 0.1 %
[2022-07-24 14:45] LABS: Eosinophils % (auto) 3.6 % (0.0-7.0); Hematocrit 30.7 % (41.0-53.0); Hemoglobin 9.7 g/dL (13.5-17.5); Mean Corpuscular Hgb Conc. 31.6 g/dL (32.0-36.0); Mean Corpuscular Volume 76.8 fL (80.0-100.0); Monocytes % (auto) 14.4 % (0.0-12.0); Neutrophils # (auto) 3.1 10 ^3/uL (1.6-8.6); Neutrophils % (auto) 64.6 % (37.0-80.0); White Blood Cell 4.7 10^3/uL (4.4-10.8)
[2022-07-24 14:51] LABS: Red Cell Distribution Width 23.4 % (11.8-14.3)
[2022-07-24 14:54] LABS: Albumin 2.4 g/dL (3.4-5.0); Calcium 8.5 mg/dL (8.5-10.1); Potassium 3.5 mmol/L (3.5-5.1)
[2022-07-24 14:57] LABS: BUN/Creatinine Ratio 18.5
[2022-07-24 15:00] LABS: Bilirubin, Total 3.6 mg/dL (0.2-1.0); Total Protein 7.8 g/dL (6.4-8.2)
[2022-07-24] MEDS ORDERED: IOHEXOL 300 MG/ML 100ML BOTTLE IJ ONE (15:53)
[2022-07-24 19:38] VITALS: BP 140/76
== END 2022-07-24 19:40 | disposition home or self-care (01) ==
LOC: ER 10:53
DX: K46.9 Unspecified abdominal hernia without obstruction or gangrene (principal); I10 Essential (primary) hypertension; F10.10 Alcohol abuse, uncomplicated; Z87.19 Personal history of other diseases of the digestive system; Z79.899 Other long term (current) drug therapy
CPT/HCPCS: 36415; 74177; 80053; 81001; 83690; 85025; 93005; 96361; 96374; 99285; J1885; J7030; Q9967

== ENCOUNTER 2023-02-25 00:24 | Inpatient (IN) | payer OTHER ==
[~2023-02-25] VITALS: Ht 177.8 cm; Wt 88.4 kg
[~2023-02-25 00:24] MED LIST changes: -SUCR1SUS10 PO; +SUCR1SUS26 PO
[2023-02-25 01:36] LABS: Alanine Aminotransferase 25 U/L (7-40); Albumin 2.6 g/dL (3.2-4.8); Alkaline Phosphatase 129 U/L (46-116); Aspartate Aminotransferase 94 U/L (13-40); BUN/Creatinine Ratio 13.4 (10.0-20.0); Bilirubin, Total 4.4 mg/dL (0.2-1.0); Blood Urea Nitrogen 9 mg/dL (9-23); Calcium 7.9 mg/dL (8.7-10.4); Chloride 104 mmol/L (98-107); Glucose 115 mg/dL (74-106); Lipase 85 U/L (12-53); Potassium 3.1 mmol/L (3.5-5.1); Sodium 131 mmol/L (136-145); Total Protein 8.5 g/dL (5.7-8.2)
[2023-02-25 01:43] LABS: Hemoglobin 8.4 g/dL (13.5-17.5)
[2023-02-25 01:49] LABS: Hematocrit 25.2 % (41.0-53.0); White Blood Cell 5.7 10^3/uL (4.4-10.8)
[2023-02-25 01:51] LABS: Mean Corpuscular Hgb Conc. 33.3 g/dL (32.0-36.0)
[2023-02-25 01:53] LABS: Red Cell Distribution Width 22.5 % (11.8-14.3)
[2023-02-25 01:55] LABS: Basophils % (manual) 0 (0.0-2.0); Blast Cells 0; Metamyelocytes % 0; Myelocytes % 0; Promyelocytes % 0; Reactive Lymphocytes 0
[2023-02-25 02:08] VITALS: BP 132/73; PULSE 86; RESP 18; TEMP 98.6; O2SAT 96
[2023-02-25 03:00] LABS: Anisocytosis Slight; Band Neutrophils % (manual) 4; Eosinophils % (manual) 2 (0-7); Lymphocytes % (manual) 15 (10.0-50.0); Monocytes % (manual) 7 (0-12); Platelet Estimate Decreased
[2023-02-25 03:01] LABS: Large Platelets FEW; Ovalocytes FEW
[2023-02-25] MEDS ORDERED: fentaNYL CITRATE 100 MCG/2 ML VL IV ONE (04:00)
[2023-02-25] MEDS ORDERED: SOD CHL 0.9%/ KCL 40MEQ 1,000 ML IV ONE ×2 (04:00→08:30)
[2023-02-25 05:59] LABS: Urine Bacteria FEW /hpf (None Seen); Urine Blood 3+ /uL (Negative); Urine Clarity Clear (Clear); Urine Color Yellow (Yellow); Urine Hyaline Cast FEW /lpf (0 - 2); Urine Protein, UAD 1+ (Negative); Urine Specific Gravity 1.016 (1.001-1.035); Urine Urobilinogen Normal (Negative); Urine WBC 5 /hpf (0 - 3)
[2023-02-25] MEDS ORDERED: NITROGLYCERIN 0.4 MG SL TAB SL PRN (07:45)
[2023-02-25] MEDS ORDERED: hydrALAZINE HCL 20 MG/ML VL IV PRN (07:45)
[2023-02-25] MEDS ORDERED: ONDANSETRON HCL 4 MG/2 ML VIAL IV PRN ×2 (07:45)
[2023-02-25] MEDS ORDERED: MORPHINE SULFATE INJ 2 MG/ml SYRG IV PRN ×2 (07:45)
[2023-02-25] MEDS ORDERED: SODIUM CHLORIDE 0.9% 1,000 ML IV SCH (07:45)
[2023-02-25 08:00] VITALS: PULSE 91; RESP 16; O2SAT 98
[2023-02-25] MEDS: PANTOPRAZOLE 40 MG/10 ML VIAL INJ IV SCH (10:08)
[2023-02-25 17:40] VITALS: PULSE 84; RESP 22; O2SAT 95
[2023-02-25] MEDS: SODIUM CHLORIDE 0.9% 1,000 ML IV SCH (18:30)
[2023-02-25 22:26] VITALS: PULSE 86; RESP 18; O2SAT 96
[2023-02-26 02:08] VITALS: PULSE 86; RESP 18; O2SAT 96
[2023-02-26] MEDS: SODIUM CHLORIDE 0.9% 1,000 ML IV SCH ×2 (05:59→16:33)
[2023-02-26 06:47] LABS: Eosinophils # (auto) 0.2 10 ^3/uL (0-0.8); Hemoglobin 7.6 g/dL (13.5-17.5)
[2023-02-26 06:50] LABS: Basophils # (auto) 0.1 10 ^3/uL (0-0.2); Basophils % (auto) 1.5 % (0.0-2.0); Eosinophils % (auto) 4.6 % (0.0-7.0); Hematocrit 24.1 % (41.0-53.0); Lymphocytes # (auto) 0.4 10 ^3/uL (0.4-5.4); Lymphocytes % (auto) 7.8 % (10.0-50.0); Mean Corpuscular Hgb Conc. 31.6 g/dL (32.0-36.0); Mean Corpuscular Volume 91.6 fL (80.0-100.0); Monocytes # (auto) 0.7 10 ^3/uL (0-1.3); Monocytes % (auto) 14.6 % (0.0-12.0); Neutrophils # (auto) 3.6 10 ^3/uL (1.6-8.6); Neutrophils % (auto) 71.5 % (37.0-80.0); Nucleated Red Blood Cells % 0.1 %; Red Blood Cells 2.63 10^6/uL (4.5-5.90); Red Cell Distribution Width 23.7 % (11.8-14.3)
[2023-02-26 07:02] LABS: Alanine Aminotransferase 20 U/L (7-40); Albumin 2.2 g/dL (3.2-4.8); Alkaline Phosphatase 90 U/L (46-116); Anion Gap 6.1 (5-15); Aspartate Aminotransferase 79 U/L (13-40); BUN/Creatinine Ratio 11.5 (10.0-20.0); Blood Urea Nitrogen 7 mg/dL (9-23); Calcium 7.6 mg/dL (8.7-10.4); Carbon Dioxide 18.9 mmol/L (20-30); Chloride 111 mmol/L (98-107); Glucose 80 mg/dL (74-106); Potassium 3.4 mmol/L (3.5-5.1); Sodium 136 mmol/L (136-145)
[2023-02-26 07:03] LABS: Bilirubin, Total 6.2 mg/dL (0.2-1.0); Total Protein 7.5 g/dL (5.7-8.2)
[2023-02-26 08:00] VITALS: BP 145/77; PULSE 81; PULSE 84; RESP 16; TEMP 97.9; O2SAT 98
[2023-02-26] MEDS: PANTOPRAZOLE 40 MG/10 ML VIAL INJ IV SCH (08:54)
[2023-02-26] MEDS ORDERED: GASTROGRAFIN 120 ML SOL ONE (09:57)
[2023-02-26 15:36] VITALS: BP 152/92; PULSE 87; RESP 16; TEMP 97.7; O2SAT 97
[2023-02-26 17:00] VITALS: BP 125/68; PULSE 89; RESP 17; TEMP 98.2; O2SAT 96
[2023-02-26 20:00] VITALS: PULSE 85
[2023-02-26 22:00] VITALS: BP 130/71; PULSE 90; RESP 18; TEMP 98.6; O2SAT 98
[2023-02-27] VITALS: BP 130/77; PULSE 85; RESP 18; TEMP 98.6; O2SAT 98
[2023-02-27] MEDS: SODIUM CHLORIDE 0.9% 1,000 ML IV SCH ×3 (00:51→18:15)
[2023-02-27 05:00] VITALS: BP 123/71; PULSE 87; RESP 18; TEMP 98.5; O2SAT 94
[2023-02-27 08:00] VITALS: BP 124/69; PULSE 79; PULSE 81; RESP 16; TEMP 98.2; O2SAT 97
[2023-02-27] MEDS: PANTOPRAZOLE 40 MG/10 ML VIAL INJ IV SCH (08:49)
[2023-02-27 12:00] VITALS: BP 144/81; PULSE 83; RESP 18; TEMP 98.6; O2SAT 98
[2023-02-27 16:00] VITALS: BP 140/78; PULSE 80; RESP 16; TEMP 98.2; O2SAT 97
[2023-02-27 20:00] VITALS: PULSE 89
[2023-02-28 05:00] VITALS: BP 138/80; PULSE 82; RESP 18; TEMP 98.5; O2SAT 98
[2023-02-28] MEDS: SODIUM CHLORIDE 0.9% 1,000 ML IV SCH (05:48)
[2023-02-28 08:00] VITALS: PULSE 75
[2023-02-28 09:00] VITALS: BP 125/81; PULSE 90; RESP 17; TEMP 97; O2SAT 97
[2023-02-28] MEDS: PANTOPRAZOLE 40 MG/10 ML VIAL INJ IV SCH (09:17)
[2023-02-28 13:00] VITALS: BP 130/73; PULSE 81; RESP 22; TEMP 97; O2SAT 97
== END 2023-02-28 14:04 | disposition home or self-care (01) | DRG 254 ==
LOC: EDBD 00:24 → ER 00:34 → TELE 07:41 → TELE-EAST 22:18
PROVIDERS: ADMIT Nurse Practitioner; ATTEND Nurse Practitioner
DX: K42.9 Umbilical hernia without obstruction or gangrene (principal); E43 Unspecified severe protein-calorie malnutrition; D69.6 Thrombocytopenia, unspecified; K76.6 Portal hypertension; D63.8 Anemia in other chronic diseases classified elsewhere; K70.30 Alcoholic cirrhosis of liver without ascites; K52.9 Noninfective gastroenteritis and colitis, unspecified; K59.00 Constipation, unspecified; E87.6 Hypokalemia; E80.6 Other disorders of bilirubin metabolism; Z82.49 Family history of ischemic heart disease and other diseases of the circulatory system; Z83.3 Family history of diabetes mellitus; Z68.28 Body mass index [BMI] 28.0-28.9, adult
CPT/HCPCS: 36415; 74176; 74250; 80053; 81001; 82140; 83690; 84484; 85007; 85025; 85027; 93005; 96374; 96376; C9113; G0378

== ENCOUNTER 2023-04-10 09:46 | Emergency (ER) | payer MEDICAID, OTHER ==
[~2023-04-10] VITALS: Ht 167.6 cm; Wt 93.6 kg
[~2023-04-10 09:46] MED LIST changes: -PANT40T PO; -SUCR1SUS26 PO
[2023-04-10] MEDS ORDERED: SODIUM CHLORIDE 0.9% 1,000 ML IV ONE (10:30)
[2023-04-10] MEDS ORDERED: ONDANSETRON HCL 4 MG/2 ML VIAL IV ONE (10:30)
[2023-04-10 10:41] LABS: Basophils # (auto) 0 10 ^3/uL (0-0.2); Basophils % (auto) 0.6 % (0.0-2.0); Eosinophils # (auto) 0 10 ^3/uL (0-0.8); Eosinophils % (auto) 0.5 % (0.0-7.0); Hematocrit 26.9 % (41.0-53.0); Hemoglobin 8.8 g/dL (13.5-17.5); Lymphocytes # (auto) 0.3 10 ^3/uL (0.4-5.4); Lymphocytes % (auto) 4.4 % (10.0-50.0); Mean Corpuscular Hemoglobin 29.1 pg (28.0-32.0); Mean Corpuscular Hgb Conc. 32.6 g/dL (32.0-36.0); Mean Corpuscular Volume 89.5 fL (80.0-100.0); Monocytes # (auto) 0.8 10 ^3/uL (0-1.3); Monocytes % (auto) 11.6 % (0.0-12.0); Neutrophils # (auto) 5.9 10 ^3/uL (1.6-8.6); Neutrophils % (auto) 82.9 % (37.0-80.0); Nucleated Red Blood Cells % 0.1 %; Red Blood Cells 3.01 10^6/uL (4.5-5.90); Red Cell Distribution Width 21.1 % (11.8-14.3); White Blood Cell 7.1 10^3/uL (4.4-10.8)
[2023-04-10 11:02] LABS: INR 1.7 (0.9-1.15); Prothrombin Time 17.2 sec (9.3-11.8)
[2023-04-10 11:30] VITALS: PULSE 98; RESP 23; O2SAT 96
[2023-04-10 11:50] LABS: Alanine Aminotransferase 23 U/L (7-40); Alkaline Phosphatase 107 U/L (46-116); Anion Gap 9 (5-15); Aspartate Aminotransferase 72 U/L (13-40); BUN/Creatinine Ratio 8.8 (10.0-20.0); Blood Urea Nitrogen 6 mg/dL (9-23); Calcium 8.2 mg/dL (8.5-10.1); Carbon Dioxide 18 mmol/L (20-30); Chloride 109 mmol/L (98-107); Glucose 127 mg/dL (74-106); Potassium 3.5 mmol/L (3.5-5.1); Sodium 136 mmol/L (136-145)
[2023-04-10 11:51] LABS: Bilirubin, Total 6.1 mg/dL (0.2-1.0); Total Protein 9.4 g/dL (5.7-8.2)
[2023-04-10] MEDS ORDERED: MORPHINE SULFATE 4 MG/ML SYR/VIAL IV ONE (12:00)
[2023-04-10 12:31] LABS: Albumin 2.5 g/dL (3.2-4.8)
[2023-04-10 12:42] LABS: Lipase 99 U/L (12-53)
[2023-04-10] MEDS ORDERED: LACTULOSE 10g/15ml SOLN 473ML PR ONE (13:45)
[2023-04-10 17:17] LABS: Urine Bacteria FEW /hpf (None Seen); Urine Blood 3+ /uL (Negative); Urine Clarity HAZY (Clear); Urine Color Red (Yellow); Urine Hyaline Cast FEW /lpf (0 - 2); Urine Mucus FEW (None Seen); Urine Protein, UAD 2+ (Negative); Urine Specific Gravity 1.017 (1.001-1.035); Urine WBC 28 /hpf (0 - 3)
[2023-04-10 19:45] VITALS: PULSE 96; RESP 29; O2SAT 96
[2023-04-10 20:00] VITALS: BP 159/89; PULSE 97; RESP 27; TEMP 98.8; O2SAT 96
== END 2023-04-10 20:34 | disposition short-term general hospital (02) ==
LOC: ER 09:46
DX: K42.0 Umbilical hernia with obstruction, without gangrene (principal); R00.0 Tachycardia, unspecified; K56.609 Unspecified intestinal obstruction, unspecified as to partial versus complete obstruction; D64.9 Anemia, unspecified; D69.6 Thrombocytopenia, unspecified; K76.82 Hepatic encephalopathy
CPT/HCPCS: 36415; 71045; 74176; 80053; 81001; 82140; 83690; 84484; 85025; 85610; 86850; 86900; 86901; 93005; 96361; 96374; 96375; 99291; J2270; J2405; J7030